=== PATIENT | male | born 1965 | race African-American/Black ===

== ENCOUNTER 2019-12-29 14:21 | Inpatient (IN) | payer OTHER ==
[2019-12-29] MEDS ORDERED: SODIUM CHLORIDE 0.9% 500 ML 500 ML IV STA (14:42)
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
[2019-12-29 15:14] LABS: ALT 29 U/L (4-49); AST 25 U/L (17-59); African American GFR (CKD) >90 (>60 ml/min/1.73 sqM); Alkaline Phosphatase 64 U/L (38-126); Anion Gap 9 mmol/L; Blood Urea Nitrogen 15 mg/dL (9-20); Calcium 9.2 mg/dL (8.4-10.2); Carbon Dioxide 22 mmol/L (22-30); Chloride 109 mmol/L (98-107); Glucose 108 mg/dL (74-99); Non-African American GFR(CKD) 86 (>60 ml/min/1.73 sqM); Potassium 4.4 mmol/L (3.5-5.1); Sodium 140 mmol/L (137-145); Total Protein 6.8 g/dL (6.3-8.2)
[2019-12-29 15:18] LABS: INR 0.9 (<1.2); Partial Thromboplastin Time 21.9 sec (22.0-30.0); Prothrombin Time 9.4 sec (9.0-12.0)
[2019-12-29 15:19] LABS: Basophils % (A) 1 %; Eosinophils # (A) 0.1 k/uL (0-0.7); Eosinophils % (A) 2 %; HCT 41.5 % (39.0-53.0); HGB 14.6 gm/dL (13.0-17.5); Lymphocytes # (A) 1.1 k/uL (1.0-4.8); Lymphocytes % (A) 19 %; MCH 31.6 pg (25.0-35.0); MCHC 35.2 g/dL (31.0-37.0); MCV 89.7 fL (80.0-100.0); Mean Platelet Volume 6.7; Monocytes # (A) 0.4 k/uL (0-1.0); Monocytes % (A) 7 %; Neutrophils # (A) 4.1 k/uL (1.3-7.7); Neutrophils % (A) 70 %; Platelet Count 420 k/uL (150-450); RBC 4.62 m/uL (4.30-5.90); RDW 12.5 % (11.5-15.5); WBC 5.9 k/uL (3.8-10.6)
--- NOTE | 2019-12-29 15:35 | CT ---
EXAMINATION TYPE: CT brain wo con DATE OF EXAM: 12/29/2019 COMPARISON: None HISTORY: Right sided numbness, started yesterday. CT DLP: 1098.4 mGycm Automated exposure control for dose reduction was used. Multiple axial sections were obtained of the brain without contrast. Ventricles have normal size. There is no mass effect nor midline shift. There is no sign of intracran ial hemorrhage. The calvarium is intact. There is right frontal scalp soft tissue swelling. IMPRESSION: Right frontal scalp soft tissue swelling. No acute intracranial abnormality. Mild cerebral atrophy.
--- NOTE | 2019-12-29 15:37 | XR ---
EXAMINATION TYPE: XR chest 2V DATE OF EXAM: 12/29/2019 COMPARISON: NONE HISTORY: Right sided numbness TECHNIQUE: FINDINGS: Heart and mediastinum appear normal. Lungs are clear of infiltrate. There are chest leads. Costophrenic angles are clear. Bony thorax appears intact. IMPRESSION: No active cardiopulmonary disease. Normal heart.
[2019-12-29] MEDS ORDERED: ASPIRIN 325 MG TAB PO STA (15:45)
[2019-12-29] MEDS ORDERED: SODIUM CHLORIDE 0.9% 1,000 ML IV SCH (16:00)
--- NOTE | 2019-12-29 17:44 | US ---
EXAMINATION TYPE: US carotid duplex BILAT DATE OF EXAM: 12/29/2019 COMPARISON: NONE CLINICAL HISTORY: Stenosis. Right side numbness. EXAM MEASUREMENTS: RIGHT: Peak Systolic Velocity (PSV) cm/sec ----- Right CCA: 84.2 ----- Right ICA: 88.6 ----- Right ECA: 72.6 ICA/CCA ratio: 1.1 RIGHT: End Diastole cm/sec ----- Right CCA: 23.1 ----- Right ICA: 14.4 ----- Right ECA: 10.0 LEFT: Peak Systolic Velocity (PSV) cm/sec ----- Left CCA: 65.3 ----- Left ICA: 68.2 ----- Left ECA: 69.6 ICA/CCA ratio: 1.0 LEFT: End Diastole cm/sec ----- Left CCA: 18.8 ----- Left ICA: 17.3 ----- Left ECA: 12.9 VERTEBRALS (direction of flow): Right Vertebral: Antegrade Left Vertebral: Antegrade Rhythm: Normal No significant stenosis seen IMPRESSION: There is antegrade flow in the vertebral arteries. The images and measurements suggest l ess than 25% stenosis in both internal carotid arteries. Criteria for Assigning % of Stenosis / Diameter reduction (Estimation based on the indirect measurements of the internal carotid artery velocities (ICA PSV). 1. Normal (no stenosis)=ICA PSV < 125 cm/s: ratio < 2.0: ICA EDV<40 cm/s. 2. Less than 50% stenosis=ICA PSV < 125 cm/s: ratio < 2.0: ICA EDV<40 cm/s. 3. 50 to 69% stenosis=ICA PSV of 125 to 230 cm/s: ration 2.0 ? 4.0: ICA EDV 40-100 cm/s. 4. Greater than 70% stenosis to near occlusion= ICA PSV > 230 cm/s: ratio > 4.0: ICA EDV > 100 cm/s. 5. Near occlusion= ICA PSV velocities may be low or undetectable: variable ratio and ICA EDV. 6. Total occlusion=unable to detect flow.
[2019-12-29] MEDS: ACETAMINOPHEN TAB 325 MG TAB PO PRN ×2 (17:52→22:28)
[2019-12-30 04:27] VITALS: RESP 18
[2019-12-30 07:30] LABS: Cholesterol 192 mg/dL (<200); HDL Cholesterol 46 mg/dL (40-60); LDL Cholesterol,Calculated 110 mg/dL (0-99); Triglycerides 178 mg/dL (<150)
[2019-12-30] MEDS ORDERED: ATORVASTATIN 40 MG TAB PO SCH (09:00)
--- NOTE | 2019-12-30 09:42 | ECHOF ---
Referral Reason:Thrombus MEASUREMENTS -------- HEIGHT: 182.9 cm WEIGHT: 86.2 kg BP: 122/70 RVIDd: 2.7 cm (< 3.3) IVSd: 1.0 cm (0.6 - 1.1) LVIDd: 4.6 cm (3.9 - 5.3) LVPWd: 0.9 cm (0.6 - 1.1) IVSs: 1.5 cm LVIDs: 3.0 cm LVPWs: 1.5 cm LA Diam: 2.7 cm (2.7 - 3.8) LAESV Index (A-L): 18.92 ml/m Ao Diam: 3.7 cm (2.0 - 3.7) AV Cusp: 2.2 cm (1.5 - 2.6) MV EXCURSION: 20.304 mm (> 18.000) MV EF SLOPE: 133 mm/s (70 - 150) EPSS: 0.9 cm MV E Donn: 0.72 m/s MV DecT: 216 ms MV A Donn: 0.34 m/s MV E/A Ratio: 2.12 RAP: 5.00 mmHg RVSP: 18.23 mmHg TAPSE: 21.76 mm FINDINGS -------- Sinus rhythm. This was a technically good study. The left ventricular size is normal. Left ventricular wall thickness is normal. Overall left vent ricular systolic function is normal with, an EF between 55 - 60 %. The right ventricle is normal in size. Normal LA size by volume 22+/-6 ml/m2. The right atrial size is normal. Interatrial and interventricular septum intact. The aortic valve is trileaflet, and appears structurally normal. No aortic stenosis or regurgitation. The mitral valve is normal. There is trace mitral regurgitation. Mild tricuspid regurgitation present. Right ventricular systolic pressure is normal at < 35 mmHg. There is no pulmonic regurgitation present. The aortic root size is normal. Normal inferior vena cava with normal inspiratory collapse consistent with estimated right atrial pre ssure of 5 mmHg. There is no pericardial effusion. CONCLUSIONS -------- 1. Left ventricular wall thickness is normal. 2. Overall left ventricular systolic function is normal with, an EF between 55 - 60 %. 3. Normal LA size by volume 22+/-6 ml/m2. 4. The aortic valve is trileaflet, and appears structurally normal. No aortic stenosis or regurgitati on. 5. There is trace mitral regurgitation. 6. Mild tricuspid regurgitation present. 7. Right ventricular systolic pressure is normal at < 35 mmHg. 8. Normal inferior vena cava with normal inspiratory collapse consistent with estimated right atrial pressure of 5 mmHg. 9. There is no pericardial effusion. [employer] MACHINE OPERATOR: Cici Riley RDCS
[2019-12-30] MEDS ORDERED: BENZOCAINE 20 % GEL 15 GM TUBE MM PRN (10:16)
[2019-12-30] MEDS ORDERED: ASPIRIN 325 MG TAB PO SCH (12:00)
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
--- NOTE | 2019-12-30 12:08 | P.DS ---
Providers Date of admission: 12/29/19 15:57 Attending physician: David Ricks Consults: 12/30/19 11:29 Consult Physician Routine Consulting Provider: Gema Albarado Consult Reason/Comments: Possible CVA Do you want consulting provider notified?: Yes Primary care physician: Bethanie Sage [facility] Course: Please refer to HPI for further details Patient Condition at Discharge: Stable Plan - Discharge Summary Discharge Rx Participant: Yes New Discharge Prescriptions: New Aspirin 81 mg PO DAILY #30 chewable Atorvastatin [Lipitor] 40 mg PO HS #30 tablet Discharge Medication List Aspirin 81 mg PO DAILY #30 chewable 12/30/19 [Rx] Atorvastatin [Lipitor] 40 mg PO HS #30 tablet 12/30/19 [Rx] Follow up Appointment(s)/Referral(s): Bethanie Sage MD [Primary Care Provider] - 3 Days Discharge Disposition: HOME SELF-CARE
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
[2019-12-30] MEDS ORDERED: LORazepam 2 MG/ML INJ IV STA (13:56)
[2019-12-30] MEDS ORDERED: LORazepam 1 MG TAB PO STA (13:57)
--- NOTE | 2019-12-30 15:36 | MR ---
EXAMINATION TYPE: MR brain wo con DATE OF EXAM: 12/30/2019 COMPARISON: CT 12/29/2019 HISTORY: 54 year-old male right sided numbness, possible CVA TECHNIQUE: Multiplanar, multisequence images of the brain and brainstem were acquired without IV con trast. Diffusion weighted imaging is performed. FINDINGS: No evidence for acute infarction, hemorrhage, mass, mass effect, midline shift, herniation, effacemen t of basal cisterns, or extra-axial fluid collection. Mild generalized cerebral and cerebellar volume loss. No hydrocephalus. Major intracranial flow voids are intact. 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 T2/FLAIR weighted sequences show moderate scattered bright white matter change in the subcortical, de ep, and periventricular regions of both cerebral hemispheres. Midline structures demonstrate normal morphology. The craniocervical junction is normal. Mild lobulated mucosal thickening floor of the right maxillary sinus and anterior left ethmoid air ce lls. Globes are intact. Some leftward nasal septal deviation. IMPRESSION: Mild generalized atrophy and moderate scattered burden of chronic small vessel ischemic disease. No a cute intracranial abnormality seen.
[2019-12-30 16:48] VITALS: BP 120/79; PULSE 78; TEMP 97.3
[2019-12-30 21:42] LABS: Hemoglobin A1C 4.7 % (4.0-6.0)
--- NOTE | 2019-12-31 12:36 | CDI ---
Documentation Clarification Form Date: 12/31/19 From: Mai Troy Phone: If you have a question about this query, please contact Carina Larios, Field Technical Specialist at [phone] between 8am and 5pm. Admit Date: 12/29/19 Discharge Date: 12/30/19 Patient Name: VLADISLAV ADEN Visit Number: [id number] ATTENTION: The Clinical Documentation Specialists (CDI) and [facility] Coding Staff appreciate your assistance in clarifying documentation. Please respond to the clarification below the line at the bottom and electronically sign. The CDI & [facility] Coding staff will review the response and follow-up if needed. Please note: Queries are made part of the Legal Health Record. If you have any questions, please contact the author of this message via ITS. Dear Dr. Mario Wells, Possible CVA is documented as a diagnosis in the H&P and possible acute ischemia stroke, probable left thalamic in neuro consult. 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 12/28 MRI: No acute intracranial abnormality. 12/29 MRA: No evidence for acute infarction, hemorrhage, mass, mass effect, midline shift, herniation, effacement of basal cisterns, or extra-axial fluid collection. Treatment: ASA In your professional opinion, please clarify the type of Stroke/CVA: TIA Ischemic (if know specify cause, specific vessel/location, and laterality): Hemorrhagic(if know specify specific location) Other (please specify): Unable to Determine Also, indicate any deficits related to the Stroke/CVA in your documentation (such as aphasia, ataxia, cognitive deficits, dysphagia, hemiplegiaetc.) Ruled out stroke MTDD
--- NOTE | 2020-01-03 09:43 | CDI ---
Documentation Clarification Form Date: 01/03/20 From: Mai Troy Phone: If you have a question about this query, please contact Carina Larios, Support Technician at [phone] between 8am and 5pm. Admit Date: 12/29/19 Discharge Date: 12/30/19 Patient Name: VLADISLAV ADEN Visit Number: [id number] The patients principal diagnosis has not been clearly identified and requires clarification. He presented with the following possible CVA. Per your query response the stroke was ruled out. 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 12/29 MRA: No evidence for acute infarction, hemorrhage, mass, mass effect, midline shift, herniation, effacement of basal cisterns, or extra-axial fluid collection. Treatment: ASA Consults: MRI of brain showed no acute ischemic stroke. Only small vessel disease. In your professional opinion, can you please clarify the diagnosis, after study, accounted for the patients presenting symptoms and was the reason chiefly responsible for the admission? No stroke etiology is not known for his left-sided tingling numbness MTDD
== END 2019-12-30 16:48 | disposition home or self-care (01) | DRG 92 ==
LOC: EC 14:21 → 3SCARD 15:57
PROVIDERS: ADMIT Internal Medicine; ATTEND Internal Medicine
DX: R20.0 Anesthesia of skin (principal); I67.89 Other cerebrovascular disease; E78.5 Hyperlipidemia, unspecified; I65.23 Occlusion and stenosis of bilateral carotid arteries; R40.2142 Coma scale, eyes open, spontaneous, at arrival to emergency department; R40.2362 Coma scale, best motor response, obeys commands, at arrival to emergency department; R40.2252 Coma scale, best verbal response, oriented, at arrival to emergency department; R29.701 NIHSS score 1; R47.1 Dysarthria and anarthria; R26.9 Unspecified abnormalities of gait and mobility; S06.9X0S Unspecified intracranial injury without loss of consciousness, sequela; F17.200 Nicotine dependence, unspecified, uncomplicated; V00-Y99 External causes of morbidity; W01.198A Fall on same level from slipping, tripping and stumbling with subsequent striking against other object, initial encounter; Y92.009 Unspecified place in unspecified non-institutional (private) residence as the place of occurrence of the external cause
CPT/HCPCS: 36415; 70450; 70551; 71046; 80053; 80061; 83036; 84484; 85025; 85610; 85730; 93005; 93306; 93880; 96360; 96361; 99285

== ENCOUNTER 2022-01-31 13:02 | Inpatient (IN) | payer MEDICAID, OTHER ==
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
[2022-01-31] MEDS ORDERED: ACETAMINOPHEN TAB 325 MG TAB PO PRN (18:10)
[2022-01-31] MEDS ORDERED: LORazepam 2 MG/ML INJ IM PRN ×2 (18:10)
[2022-01-31] MEDS ORDERED: MAG HYDROX/AL HYDROX/SIMETH 30 ML CUP PO PRN (18:10)
[2022-01-31] MEDS ORDERED: MAGNESIUM HYDROXIDE 2,400 MG/10 ML CUP PO PRN (18:10)
[2022-01-31] MEDS ORDERED: HALOPERIDOL LACTATE 5 MG/ML 1 ML VIAL IM PRN (18:10)
[2022-01-31] MEDS ORDERED: haloperidoL 5 MG TAB PO PRN (18:10)
[2022-01-31 18:41] LABS: Amphetamine Screen,Urine Not Detected (NotDetected); Barbiturate Screen,Urine Not Detected (NotDetected); Benzodiazepines Screen,Urine Not Detected (NotDetected); Cocaine Screen,Urine Detected (NotDetected); Methadone Screen, Urine Not Detected (NotDetected); Opiate Screen,Urine Not Detected (NotDetected); Oxycodone Screen, Urine Not Detected (NotDetected); Phencyclidine Screen,Urine Not Detected (NotDetected); Tricyclic Antidepressant,Urine Not Detected (NotDetected); Urn Cannabinoid Scrn Not Detected (NotDetected)
[2022-01-31] MEDS: NICOTINE 21MG/24HR PATCH TRANSDERM SCH (20:51)
[2022-02-01 06:49] VITALS: TEMP 98.1
[2022-02-01 07:19] LABS: ALT 20 U/L (4-49); AST 21 U/L (17-59); African American GFR (CKD) >90 (>60 ml/min/1.73 sqM); Albumin 3.7 g/dL (3.5-5.0); Alkaline Phosphatase 56 U/L (38-126); Anion Gap 7 mmol/L; Calcium 9.4 mg/dL (8.4-10.2); Carbon Dioxide 24 mmol/L (22-30); Chloride 107 mmol/L (98-107); Glucose 104 mg/dL (74-99); Non-African American GFR(CKD) 84 (>60 ml/min/1.73 sqM); Potassium 4.6 mmol/L (3.5-5.1); Sodium 138 mmol/L (137-145)
[2022-02-01 07:21] LABS: Bilirubin, Delta 0.1 mg/dL (0.0-0.2); Bilirubin,Unconjugated 1.2 mg/dL (0.0-1.1); Blood Urea Nitrogen 10 mg/dL (9-20); Total Bilirubin 1.3 mg/dL (0.2-1.3); Total Protein 6.5 g/dL (6.3-8.2)
[2022-02-01 07:41] LABS: Basophils % (A) 1 %; Eosinophils # (A) 0.1 k/uL (0-0.7); Eosinophils % (A) 3 %; HCT 48.8 % (39.0-53.0); HGB 16.5 gm/dL (13.0-17.5); Lymphocytes # (A) 1.6 k/uL (1.0-4.8); Lymphocytes % (A) 29 %; MCH 32.1 pg (25.0-35.0); MCHC 33.9 g/dL (31.0-37.0); MCV 94.9 fL (80.0-100.0); Mean Platelet Volume 6.7; Monocytes # (A) 0.5 k/uL (0-1.0); Monocytes % (A) 8 %; Neutrophils # (A) 3.3 k/uL (1.3-7.7); Neutrophils % (A) 58 %; Platelet Count 475 k/uL (150-450); RBC 5.14 m/uL (4.30-5.90); RDW 13.2 % (11.5-15.5); WBC 5.7 k/uL (3.8-10.6)
[2022-02-01] MEDS: NICOTINE 21MG/24HR PATCH TRANSDERM SCH (08:25)
--- NOTE | 2022-02-01 11:53 | P.HP ---
Psychiatric H&P - . H&P Date: 02/01/22 History & Physical: Allergies Allergy/AdvReac Type Severity Reaction Status Date / Time No Known Allergies Allergy Verified 01/31/22 18:17 Vital Signs Temp 98.1 F 02/01/22 06:48 Pulse 97 02/01/22 06:48 Resp 16 01/31/22 18:57 BP 106/73 02/01/22 06:48 Pulse Ox 95 02/01/22 06:48 Intake & Output 01/31/22 02/01/22 02/01/22 18:59 06:59 18:59 Weight 82.1 kg Laboratory Last Values WBC 5.7 k/uL (3.8-10.6) 02/01/22 06:26 RBC 5.14 m/uL (4.30-5.90) 02/01/22 06:26 Hgb 16.5 gm/dL (13.0-17.5) 02/01/22 06:26 Hct 48.8 % (39.0-53.0) 02/01/22 06:26 MCV 94.9 fL (80.0-100.0) 02/01/22 06:26 MCH 32.1 pg (25.0-35.0) 02/01/22 06:26 MCHC 33.9 g/dL (31.0-37.0) 02/01/22 06:26 RDW 13.2 % (11.5-15.5) 02/01/22 06:26 Plt Count 475 k/uL (150-450) H 02/01/22 06:26 MPV 6.7 02/01/22 06:26 Neutrophils % 58 % 02/01/22 06:26 Lymphocytes % 29 % 02/01/22 06:26 Monocytes % 8 % 02/01/22 06:26 Eosinophils % 3 % 02/01/22 06:26 Basophils % 1 % 02/01/22 06:26 Neutrophils # 3.3 k/uL (1.3-7.7) 02/01/22 06:26 Lymphocytes # 1.6 k/uL (1.0-4.8) 02/01/22 06:26 Monocytes # 0.5 k/uL (0-1.0) 02/01/22 06:26 Eosinophils # 0.1 k/uL (0-0.7) 02/01/22 06:26 Basophils # 0.0 k/uL (0-0.2) 02/01/22 06:26 Sodium 138 mmol/L (137-145) 02/01/22 06:26 Potassium 4.6 mmol/L (3.5-5.1) 02/01/22 06:26 Chloride 107 mmol/L (98-107) 02/01/22 06:26 Carbon Dioxide 24 mmol/L (22-30) 02/01/22 06:26 Anion Gap 7 mmol/L 02/01/22 06:26 BUN 10 mg/dL (9-20) 02/01/22 06:26 Creatinine 1.01 mg/dL (0.66-1.25) 02/01/22 06:26 Est GFR (CKD-EPI)AfAm >90 (>60 ml/min/1.73 sqM) 02/01/22 06:26 Est GFR (CKD-EPI)NonAf 84 (>60 ml/min/1.73 sqM) 02/01/22 06:26 Glucose 104 mg/dL (74-99) H 02/01/22 06:[address] Glu mg/dL 97 02/01/22 06:26 Hemoglobin A1c 5.0 % (0.0-6.0) 02/01/22 06:26 Calcium 9.4 mg/dL (8.4-10.2) 02/01/22 06:26 Total Bilirubin 1.3 mg/dL (0.2-1.3) 02/01/22 06:26 Conjugated Bilirubin 0.0 mg/dL (0.0-0.3) 02/01/22 06:26 Unconjugated Bilirubin 1.2 mg/dL (0.0-1.1) H 02/01/22 06:26 Delta Bilirubin 0.1 mg/dL (0.0-0.2) 02/01/22 06:26 AST 21 U/L (17-59) 02/01/22 06:26 ALT 20 U/L (4-49) 02/01/22 06:26 Alkaline Phosphatase 56 U/L (38-126) 02/01/22 06:26 Total Protein 6.5 g/dL (6.3-8.2) 02/01/22 06:26 Albumin 3.7 g/dL (3.5-5.0) 02/01/22 06: TSH 1.390 mIU/L (0.465-4.680) 02/01/22 06:26 Urine Opiates Screen Not Detected (NotDetected) 01/31/22 17:22 Ur Oxycodone Screen Not Detected (NotDetected) 01/31/22 17:22 Urine Methadone Screen Not Detected (NotDetected) 01/31/22 17:22 Ur Propoxyphene Screen Not Detected (NotDetected) 01/31/22 17:22 Ur Barbiturates Screen Not Detected (NotDetected) 01/31/22 17:22 U Tricyclic Antidepress Not Detected (NotDetected) 01/31/22 17: Ur Phencyclidine Scrn Not Detected (NotDetected) 01/31/22 17:22 Ur Amphetamines Screen Not Detected (NotDetected) 01/31/22 17:22 U Methamphetamines Scrn Not Detected (NotDetected) 01/31/22 17:22 U Benzodiazepines Scrn Not Detected (NotDetected) 01/31/22 17:22 Urine Cocaine Screen Detected (NotDetected) H 01/31/22 17:22 U Marijuana (THC) Screen Not Detected (NotDetected) 01/31/22 17:22 Coronavirus (PCR) Not Detected (Not Detectd) 01/31/22 17:22 02/01/22 11:45 IDENTIFYING DATA: Patient is a 56-year-old -[place] male who currently lives in an apartment alone, single has no kids, collects SSI. HPI: Patient presented to the hospital yesterday complaining of suicidal or homicidal ideations. She apparently made a plan to overdose on pills. 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 Patient was admitted voluntarily to the mental health unit. He was seen things that today and agreeable to speak to fha underwriter. He walked with a walker and was mumbling with his speech. He was fairly directable during conversation however had a constricted affect. He did have some irritability with his tone of voice. He claims that he can't "keep going through this" referring to his drinking and also with his mood. He states that he was drinking approximately 2 pints of liquor +6 beers a day for several months now. He states that his last drink was 1 week ago and went through minor withdrawals including tremors however denied any seizures. He states that he is not having any withdrawal symptoms now. He claims that he is trying to get into [place] however he states that he was upset when they told him that they would not be able to provide him transportation back to his house. He states that "my mind just snapped" and that's when he became more depressed and suicidal. He states that also he's been having financial issues and claims that he recently lost his rent money and does not know how he is getting a pay his rent. He claims that he went to [facility] to speak with a counselor however they referred him to the hospital. He claims that he is mainly noncompliant with his medications however has not taking psychiatric medications in the past. He states he sleeps approximately 7-8 hours however appears to have a delay in his sleep-wake cycle. He claims that his appetite is fair. Patient denies any current suicidal or homicidal ideations intent or plan. At this time patient denies any auditory or visual hallucinations. Patient denies any flight of ideas racing thoughts and increased in goal directed behavior. Patient admits to using crack cocaine approximately $30-$40 a week. He claims that he drinks alcohol as noted above. He states that he has been to [place] several times in the past. He also states that he smokes cigarettes. Denies any other recreational drug use. PAST PSYCHIATRIC HISTORY: Patient states that he has no previous psychiatric history however does have a history of TBI back in the early .. Patient denies being on any psychiatric medications. Patient denies any previous psychiatric hospitalizations. Patient denies any psychiatric outpatient follow- up. Patient denies any history of suicide attempts in the past. PMH: TBI in the early . ALLERGIES: as per EMR CHEMICAL DEPENDENCY HISTORY: as per HPI FAMILY PSYCHIATRIC/SUBSTANCE USE HISTORY: denies SOCIAL HISTORY: Patient was born and raised in [facility]. He states that he completed up to the 10th grade in school. He claims that he never worked and "hustled in the streets". He states that he currently collects SSI. He states that he has been to [facility] in the past for charges of stealing. He currently lives alone in an apartment. He single has no kids. MENTAL STATUS EXAM: General Appearance: Patient appears to be a tall, walking with a walker, stated age is alert, directable, and attempts to cooperate. Somewhat irritable. Patient appears to have poor hygiene and grooming. Behavior: Patient is seated without any agitated behavior. Mood irritable. Attempts to cooperate. Speech: Patient's speech is difficult to comprehend at times, mumbling. Mood/Affect: Patient reports their mood is depressed, affect is congruent and constricted. Suicidality/Homicidality: Patient denies having any homicidal ideation intent or plan. Denies any suicidal ideations intent or plan Perceptions: Patient denies any visual hallucinations and denies any auditory hallucinations Though content/process: There is no evidence of any delusional thought content and thought process is linear and goal-directed. Tangential, rambles. Memory and concentration: AOX3, grossly intact for the purposes of this session. Can spell "WORLD" backwards Judgment and insight: poor STRENGTHS/WEAKNESSES: strength is that patient is resilient. Weakness is that patient has poor judgment and is impulsive INTELLECT: average IMPRESSIONS: Major depressive disorder, without psychotic features Financial difficulties Cocaine abuse Alcohol use disorder Nicotine dependence PLAN: -Patient is admitted under voluntary status to MHU for stabilization of psychiatric symptoms and safety. Patient has not signed medication consent and is placed in patient's chart. -Medications : Will start patient on Cymbalta 30 mg daily for mood/anxiety/pain, melatonin daily at bedtime for sleep. -Ativan and Haldol PRN for agitation/aggression -Patient's last alcohol drink was over a week ago and is not currently having any withdrawal symptoms. We'll continue to monitor and check vital signs. -Patient was counselled on substance abuse and desired to cut back on use -Patient was informed of the risks, benefits and side effects of the medication and patient verbally consented to taking the medications however patient did not want to sign med consent form. -Internal Medicine consult to perform medical evaluation and physical. -NRT - nicotine patch -SW on board for discharge planning. Encourage patient to participate in groups to work on coping skills. Patient continues to want to go to [place] however will speak with social work assistant about transportation issues.
[2022-02-01] MEDS: DULoxetine HCL 30 MG CAPSULE.DR PO SCH (13:27)
[2022-02-01 16:35] LABS: Chol/HDL Ratio 6.65 Ratio; LDL Cholesterol,Calculated 188.1 mg/dL (0.0-131.0)
[2022-02-01] MEDS ORDERED: MELATONIN 3 MG TABLET PO SCH (21:00)
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
[2022-02-01] MEDS: ATORVASTATIN 40 MG TAB PO SCH (21:41)
[2022-02-01] MEDS: THIAMINE 100 MG TAB PO SCH (21:41)
[2022-02-02] MEDS: NICOTINE 21MG/24HR PATCH TRANSDERM SCH (09:38)
[2022-02-02] MEDS: DULoxetine HCL 30 MG CAPSULE.DR PO SCH (09:38)
[2022-02-02] MEDS: THIAMINE 100 MG TAB PO SCH (09:38)
--- NOTE | 2022-02-02 10:10 | P.PN ---
Progress Note - Text Progress Note Date: 02/02/22 Interval History: Patient was seen wandering the hallways and was directable and agreeable to ben castaneda with race and sports book writer in the office. Patient had just taken his medications this morning. He appeared to be more directable and less irritable during conversation. He states that he feels "about the same" and continues to state that he does feel depressed and also states that he still feels that he may want to hurt somebody. When asked who, he states that "anybody that messes with me". He is denying any suicidal thoughts today. He claims that he feels mainly tired during the day after he takes the Cymbalta and was agreeable to have it switched to nighttime dosing. He states that he did not sleep well last night and states that he did get a new roommate who may have been disruptive. He claims that he is eating fairly now and his appetite has been improving. He does claim that he goes to the groups later on in the day as he is feeling tired during the day. We continue to speak about his financial situation and help with paying the rent on time. He states that he does have a payee however he was still able to somehow withdrawal $400 from the bank. At this time patient denies any suicidal, intent or plan. Patient denies any auditory, visual hallucinations and denies any paranoia or delusions. Patient denies any side effects from the medications and has been compliant with meds. Mental Status Exam: General Appearance: Patient appears to be a tall, walking with a walker, stated age is alert, directable, and attempts to cooperate. Somewhat irritable. Patient appears to have improving hygiene and grooming. Behavior: Patient is seated without any agitated behavior. Mood irritable. Attempts to cooperate. Speech: Patient's speech is difficult to comprehend at times, mumbling. Mood/Affect: Patient reports their mood is depressed, improving mildly, affect is congruent and constricted. Suicidality/Homicidality: Patient denies having any homicidal ideation intent or plan. Denies any suicidal ideations intent or plan Perceptions: Patient denies any visual hallucinations and denies any auditory hallucinations Though content/process: There is no evidence of any delusional thought content and thought process is linear and goal-directed. Tangential, rambles at times. Memory and concentration: AOX3, grossly intact for the purposes of this session. Judgment and insight: poor, improving mildly Assessment Major depressive disorder, without psychotic features Financial difficulties Cocaine abuse Alcohol use disorder Nicotine dependence Plan: -Patient continues to meet criteria for inpatient psychiatric admission for symptom stabilization and safety. Patient has not signed medication consent and was placed in patient's chart. -Medications: increase Cymbalta 60 mg daily at bedtime for mood/anxiety/pain, increase melatonin 5 mg daily at bedtime for sleep -When necessary Ativan and Haldol for agitation/aggression. -NRT - nicotine patch -SW on board for discharge planning. Encouraged the patient to participate in milieu. likely discharge in 1-2 days.
[2022-02-02] MEDS ORDERED: MELATONIN 5 MG TABLET PO SCH (21:00)
[2022-02-02] MEDS: ATORVASTATIN 40 MG TAB PO SCH (21:23)
[2022-02-02] MEDS: DULoxetine HCL 60 MG CAPSULE.DR PO SCH (21:23)
[2022-02-03] MEDS ORDERED: LORazepam 1 MG TAB PO PRN (01:55)
[2022-02-03] MEDS ORDERED: traZODone HCL 50 MG TAB PO STA (01:57)
[2022-02-03] MEDS: NICOTINE 21MG/24HR PATCH TRANSDERM SCH (08:19)
[2022-02-03] MEDS: THIAMINE 100 MG TAB PO SCH (08:19)
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
[2022-02-03] MEDS: ATORVASTATIN 40 MG TAB PO SCH (19:55)
[2022-02-03] MEDS: DULoxetine HCL 60 MG CAPSULE.DR PO SCH (19:56)
[2022-02-03] MEDS ORDERED: MIRTAZAPINE 15 MG TAB PO SCH (21:00)
[2022-02-03] MEDS ORDERED: MELATONIN 5 MG TABLET PO SCH (21:00)
[2022-02-03] MEDS ORDERED: traZODone HCL 100 MG TAB PO SCH (21:00)
[2022-02-04 06:52] VITALS: BP 96/62; PULSE 72; RESP 16
[2022-02-04] MEDS: NICOTINE 21MG/24HR PATCH TRANSDERM SCH (08:47)
[2022-02-04] MEDS: THIAMINE 100 MG TAB PO SCH (08:47)
--- NOTE | 2022-02-04 09:59 | P.DS ---
Providers Date of admission: 01/31/22 18:05 Expected date of discharge: 02/04/22 Attending physician: Myron Hewitt MD Consults: 01/31/22 18:10 Consult Physician Routine Consulting Provider: [facility] Consult Reason/Comments: H & P W/MEDICAL MANAGEMENT Do you want consulting provider notified?: Yes Primary care physician: Bethanie Sage - Discharge Diagnosis(es) (1) Major depressive disorder without psychotic features Current Visit: Yes Status: Acute Priority: High (2) Financial difficulties Current Visit: Yes Status: Acute Priority: Medium (3) Cocaine abuse Current Visit: Yes Status: Acute Priority: High (4) Alcohol use disorder Current Visit: Yes Status: Acute Priority: Medium (5) Nicotine dependence Current Visit: Yes Status: Acute Priority: Low Hospital Course: Admission HPI: Admission note was completed by scenario writer "Patient is a 56-year-old -Am er[place] male who currently lives in an apartment alone, single has no kids, collects SSI. Patient presented to the hospital yesterday complaining of suicidal or homicidal ideations. She apparently made a plan to overdose on pills. 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 Patient was admitted voluntarily to the mental health unit. He was seen things that today and agreeable to speak to scenario writer. He walked with a walker and was mumbling with his speech. He was fairly directable during conversation however had a constricted affect. He did have some irritability with his tone of voice. He claims that he can't "keep going through this" referring to his drinking and also with his mood. He states that he was drinking approximately 2 pints of liquor +6 beers a day for several months now. He states that his last drink was 1 week ago and went through minor withdrawals including tremors however denied any seizures. He states that he is not having any withdrawal symptoms now. He claims that he is trying to get into [place] however he states that he was upset when they told him that they would not be able to provide him transportation back to his house. He states that "my mind just snapped" and that's when he became more depressed and suicidal. He states that also he's been having financial issues and claims that he recently lost his rent money and does not know how he is getting a pay his rent. He claims that he went to [facility] to speak with a counselor however they referred him to the hospital. He claims that he is mainly noncompliant with his medications however has not taking psychiatric medications in the past. He states he sleeps approximately 7-8 hours however appears to have a delay in his sleep-wake cycle. He claims that his appetite is fair. Patient denies any current suicidal or homicidal ideations intent or plan. At this time patient denies any auditory or visual hallucinations. Patient denies any flight of ideas racing thoughts and increased in goal directed behavior. Patient admits to using crack cocaine approximately $30-$40 a week. He claims that he drinks alcohol as noted above. He states that he has been to [facility] several times in the past. He also states that he smokes cigarettes. Denies any other recreational drug use." Hospital course: Upon admission to the unit patient was directable and agreeable to commence treatment and signed adult voluntary form. Patient got along well with other patients on the unit and followed unit protocol. Patient was compliant with the medications and denied any side effects throughout hospital course. Patient was started on Cymbalta and increased her dose of 60 mg daily at bedtime for mood/anxiety/pain, melatonin 10 mg daily at bedtime for sleep. Patient was tried on Remeron however did not tolerate it well and was switched back on to trazodone 100 mg daily at bedtime when necessary for sleep. Patient spoke of his stressors and engaged in therapy both group and individual. Patient was also seen by medical team for history and physical exam. Throughout the course of the hospitalization patient gradually improved with regards to mood, anxiety, irritability, sleep and returned back to their baseline level of functioning. On the day of discharge patient denied any suicidal or homicidal ideations intent or plan denied any auditory or visual hallucinations. Patient endorsed wanting to live for his family and his future. The patient denied any access to guns or weapons. Patient denied any paranoia and did not endorse any delusions. Patient does have a significant history of substance abuse and was counseled on abstaining from all substances including alcohol and marijuana. Patient was offered however declined inpatient substance-abuse rehab. Patient elected to do outpatient substance use treatment program through [facility] and claims that he will consider inpatient rehab in the future however at this time is declining it. Patient was also counseled on the medications and need for regular compliance and was encouraged to follow-up with their outpatient appointment for mental health and also for primary care. Mental status exam: General Appearance: Patient appears to be thin, using a walker, stated age is alert, directable, and cooperative. Patient is in no acute distress and has improved hygiene and grooming Behavior: Patient is calmly seated without any agitated behavior. More cooperative today. Speech: Patient's speech is fluent and nonpressured. Mood/Affect: Patient reports their mood is "better", affect is congruent and constricted Suicidality/Homicidality: Patient denies having any suicidal or homicidal ideation intent or plan. Perceptions: Patient denies any auditory or visual hallucinations. Though content/process: There is no evidence of any delusional thought content and thought process is linear and goal-directed. [place]. Memory and concentration: AOX3, grossly intact for the purposes of this session. Can spell "WORLD" backwards correctly. Judgment and insight: chronically poor, however has improved with guarded prognosis Impression: Major depressive disorder, without psychotic features Financial difficulties Cocaine abuse Alcohol use disorder Nicotine dependence Plan: -Continue with discharge today as patient has improved and stabilized psychiatrically and is not currently an imminent threat to himself and/or others. Patient will remain at chronically elevated risk for harm to self and/or others due to his polysubstance abuse. -Continue medications: Cymbalta 60 mg daily at bedtime for mood/anxiety/pain, melatonin 10 mg daily at bedtime for sleep, trazodone 100 mg daily at bedtime when necessary for sleep. -Patient was counseled on the need for medication compliance and appropriate follow-up at mental health and also primary care for medical issues. Patient verbalized understanding and agreed. -Social work to help arrange patient's discharged today back home. Patient is refusing rehab. Social work also to arrange for patients follow up appointments with [facility] for psychiatric care along with follow up with primary care provider. -Patient counseled on abstaining from recreational drugs and marijuana and alcohol. Was informed/educated on the adverse effects on their physical and mental health. Patient verbally agreed and understood. Patient was offered substance abuse treatment however declined at this time. -Patient was instructed to return to the hospital or seek immediate medical care if their psychiatric or medical symptoms do worsen or reoccur. Allergies Allergy/AdvReac Type Severity Reaction Status Date / Time No Known Allergies Allergy Verified 01/31/22 18:17 Laboratory Results WBC 5.7 k/uL (3.8-10.6) 02/01/22 06:26 RBC 5.14 m/uL (4.30-5.90) 02/01/22 06:26 Hgb 16.5 gm/dL (13.0-17.5) 02/01/22 06:26 Hct 48.8 % (39.0-53.0) 02/01/22 06:26 MCV 94.9 fL (80.0-100.0) 02/01/22 06:26 MCH 32.1 pg (25.0-35.0) 02/01/22 06:26 MCHC 33.9 g/dL (31.0-37.0) 02/01/22 06:26 RDW 13.2 % (11.5-15.5) 02/01/22 06:26 Plt Count 475 k/uL (150-450) H 02/01/22 06:26 MPV 6.7 02/01/22 06:26 Neutrophils % 58 % 02/01/22 06:26 Lymphocytes % 29 % 02/01/22 06:26 Monocytes % 8 % 02/01/22 06:26 Eosinophils % 3 % 02/01/22 06:26 Basophils % 1 % 02/01/22 06:26 Neutrophils # 3.3 k/uL (1.3-7.7) 02/01/22 06:26 Lymphocytes # 1.6 k/uL (1.0-4.8) 02/01/22 06:26 Monocytes # 0.5 k/uL (0-1.0) 02/01/22 06:26 Eosinophils # 0.1 k/uL (0-0.7) 02/01/22 06:26 Basophils # 0.0 k/uL (0-0.2) 02/01/22 06:26 Sodium 138 mmol/L (137-145) 02/01/22 06:26 Potassium 4.6 mmol/L (3.5-5.1) 02/01/22 06:26 Chloride 107 mmol/L (98-107) 02/01/22 06:26 Carbon Dioxide 24 mmol/L (22-30) 02/01/22 06:26 Anion Gap 7 mmol/L 02/01/22 06:26 BUN 10 mg/dL (9-20) 02/01/22 06:26 Creatinine 1.01 mg/dL (0.66-1.25) 02/01/22 06:26 Est GFR (CKD-EPI)AfAm >90 (>60 ml/min/1.73 sqM) 02/01/22 06:26 Est GFR (CKD-EPI)NonAf 84 (>60 ml/min/1.73 sqM) 02/01/22 06:26 Glucose 104 mg/dL (74-99) H 02/01/22 06:[address] Glu mg/dL 97 02/01/22 06:26 Hemoglobin A1c 5.0 % (0.0-6.0) 02/01/22 06:26 Calcium 9.4 mg/dL (8.4-10.2) 02/01/22 06:26 Total Bilirubin 1.3 mg/dL (0.2-1.3) 02/01/22 06:26 Conjugated Bilirubin 0.0 mg/dL (0.0-0.3) 02/01/22 06:26 Unconjugated Bilirubin 1.2 mg/dL (0.0-1.1) H 02/01/22 06:26 Delta Bilirubin 0.1 mg/dL (0.0-0.2) 02/01/22 06:26 AST 21 U/L (17-59) 02/01/22 06:26 ALT 20 U/L (4-49) 02/01/22 06:26 Alkaline Phosphatase 56 U/L (38-126) 02/01/22 06:26 Total Protein 6.5 g/dL (6.3-8.2) 02/01/22 06:26 Albumin 3.7 g/dL (3.5-5.0) 02/01/22 06:26 Triglycerides 181.00 mg/dL (0.00-149.00) H 02/01/22 06:26 Cholesterol 264.00 mg/dL (0.00-200.00) H 02/01/22 06:26 LDL Cholesterol, Calc 188.1 mg/dL (0.0-131.0) H 02/01/22 06:26 VLDL Cholesterol, Calc 36.20 mg/dL (5.00-40.00) 02/01/22 06: HDL Cholesterol 39.70 mg/dL (40.00-60.00) L 02/01/22 06:26 Cholesterol/HDL Ratio 6.65 Ratio 02/01/22 06:26 TSH 1.390 mIU/L (0.465-4.680) 02/01/22 06:26 Urine Opiates Screen Not Detected (NotDetected) 01/31/22 17:22 Ur Oxycodone Screen Not Detected (NotDetected) 01/31/22 17:22 Urine Methadone Screen Not Detected (NotDetected) 01/31/22 17:22 Ur Propoxyphene Screen Not Detected (NotDetected) 01/31/22 17:22 Ur Barbiturates Screen Not Detected (NotDetected) 01/31/22 17:22 U Tricyclic Antidepress Not Detected (NotDetected) 01/31/22 17:22 Ur Phencyclidine Scrn Not Detected (NotDetected) 01/31/22 17:22 Ur Amphetamines Screen Not Detected (NotDetected) 01/31/22 17:22 U Methamphetamines Scrn Not Detected (NotDetected) 01/31/22 17:22 U Benzodiazepines Scrn Not Detected (NotDetected) 01/31/22 17:22 Urine Cocaine Screen Detected (NotDetected) H 01/31/22 17:22 U Marijuana (THC) Screen Not Detected (NotDetected) 01/31/22 17:22 Coronavirus (PCR) Not Detected (Not Detectd) 01/31/22 17:22 Vital Signs Temp 98.1 F 02/04/22 06:51 Pulse 72 02/04/22 06:51 Resp 16 02/04/22 06:51 BP 96/62 02/04/22 06:51 Pulse Ox 98 02/04/22 06:51 Patient Condition at Discharge: Stable Plan - Discharge Summary New Discharge Prescriptions: New Atorvastatin [Lipitor] 40 mg PO HS 30 Days tab Melatonin 10 mg PO HS 30 Days tablet DULoxetine HCL [Cymbalta] 60 mg PO HS 30 Days Nicotine 21Mg/24Hr Patch [Habitrol] 1 patch TRANSDERM DAILY 14 Days patch traZODone HCL 100 mg PO HS PRN 30 Days tablet PRN Reason: Insomnia Thiamine [Vitamin B-1] 100 mg PO DAILY 30 Days tab Discontinued Promethazine 6.25MG/5Ml [Phenergan Syrup] 6.25 mg PO HS Discharge Medication List Atorvastatin [Lipitor] 40 mg PO HS 30 Days tab 02/04/22 [Rx] DULoxetine HCL [Cymbalta] 60 mg PO HS 30 Days 02/04/22 [Rx] Melatonin 10 mg PO HS 30 Days tablet 02/04/22 [Rx] Nicotine 21Mg/24Hr Patch [Habitrol] 1 patch TRANSDERM DAILY 14 Days patch 02/04/22 [Rx] Thiamine [Vitamin B-1] 100 mg PO DAILY 30 Days tab 02/04/22 [Rx] traZODone HCL 100 mg PO HS PRN 30 Days tablet 02/04/22 [Rx] Follow up Appointment(s)/Referral(s): [facility] [Outside] - 02/10/22 11:30 am (02/10 @ 11:30am- [facility] intake at [facility]) Bethanie Sage MD [Primary Care Provider] - 1-2 days Activity/Diet/Wound Care/Special Instructions: Activity and diet as tolerated. Avoid the use of street drugs and alcohol. Take all medications as prescribed. When you are in need of refills on your medications please contact your medical provider and/or outpatient psychiatrist to have this done. Please go to scheduled outpatient appointment for aftercare treatment. If symptoms return or become worse, call the crisis line at and/or go to the nearest emergency room for evaluation Discharge Disposition: HOME SELF-CARE
== END 2022-02-04 13:31 | disposition home or self-care (01) | DRG 881 ==
LOC: EC 13:02 → 3MHU 18:05
PROVIDERS: ADMIT Psychiatry & Neurology Psychiatry; ATTEND Psychiatry & Neurology Psychiatry
DX: F32.9 Major depressive disorder, single episode, unspecified (principal); R45.851 Suicidal ideations; E78.1 Pure hyperglyceridemia; T43.96XA Underdosing of unspecified psychotropic drug, initial encounter; E78.5 Hyperlipidemia, unspecified; F10.10 Alcohol abuse, uncomplicated; F14.10 Cocaine abuse, uncomplicated; F17.210 Nicotine dependence, cigarettes, uncomplicated; Z71.41 Alcohol abuse counseling and surveillance of alcoholic; Z71.51 Drug abuse counseling and surveillance of drug abuser; Z71.6 Tobacco abuse counseling; F41.9 Anxiety disorder, unspecified; R45.850 Homicidal ideations; Z79.82 Long term (current) use of aspirin; Z28.310 Unvaccinated for COVID-19; Z20.822 Contact with and (suspected) exposure to COVID-19; Z79.899 Other long term (current) drug therapy; Z87.820 Personal history of traumatic brain injury; Z91.128 Patient's intentional underdosing of medication regimen for other reason; Z60.2 Problems related to living alone
CPT/HCPCS: 80053; 80061; 80306; 82075; 82248; 83036; 84443; 85025; 87635; 99285

== ENCOUNTER 2022-05-20 23:47 | Inpatient (IN) | payer MEDICAID, OTHER ==
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
[2022-05-21] MEDS ORDERED: THIAMINE 100 MG TAB PO STA (01:09)
[2022-05-21 01:48] LABS: Basophils # (A) 0.1 k/uL (0-0.2); Basophils % (A) 1 %; Eosinophils # (A) 0.1 k/uL (0-0.7); Eosinophils % (A) 2 %; HCT 41.7 % (39.0-53.0); HGB 13.8 gm/dL (13.0-17.5); Lymphocytes # (A) 1.8 k/uL (1.0-4.8); Lymphocytes % (A) 27 %; MCH 30.6 pg (25.0-35.0); MCHC 33.2 g/dL (31.0-37.0); MCV 92.2 fL (80.0-100.0); Mean Platelet Volume 6.8; Monocytes # (A) 0.4 k/uL (0-1.0); Monocytes % (A) 7 %; Neutrophils # (A) 4.3 k/uL (1.3-7.7); Neutrophils % (A) 63 %; Platelet Count 339 k/uL (150-450); RBC 4.52 m/uL (4.30-5.90); RDW 13.3 % (11.5-15.5); WBC 6.8 k/uL (3.8-10.6)
[2022-05-21 01:49] LABS: ALT 19 U/L (4-49); AST 22 U/L (17-59); Acetaminophen <10.0 ug/mL; African American GFR (CKD) >90 (>60 ml/min/1.73 sqM); Albumin 3.7 g/dL (3.5-5.0); Alcohol 26 mg/dL; Alkaline Phosphatase 59 U/L (38-126); Anion Gap 15 mmol/L; Blood Urea Nitrogen 5 mg/dL (9-20); Calcium 9.1 mg/dL (8.4-10.2); Carbon Dioxide 18 mmol/L (22-30); Chloride 106 mmol/L (98-107); Glucose 120 mg/dL (74-99); Lipase 97 U/L (23-300); Non-African American GFR(CKD) 88 (>60 ml/min/1.73 sqM); Potassium 3.6 mmol/L (3.5-5.1); Salicylate <1.0 mg/dL; Sodium 139 mmol/L (137-145); Total Bilirubin 0.7 mg/dL (0.2-1.3); Total Protein 5.9 g/dL (6.3-8.2)
[2022-05-21 01:58] LABS: Amphetamine Screen,Urine Not Detected (NotDetected); Barbiturate Screen,Urine Not Detected (NotDetected); Benzodiazepines Screen,Urine Not Detected (NotDetected); Cocaine Screen,Urine Detected (NotDetected); Methadone Screen, Urine Not Detected (NotDetected); Opiate Screen,Urine Not Detected (NotDetected); Oxycodone Screen, Urine Not Detected (NotDetected); Phencyclidine Screen,Urine Not Detected (NotDetected); Tricyclic Antidepressant,Urine Not Detected (NotDetected); Urn Cannabinoid Scrn Not Detected (NotDetected)
--- NOTE | 2022-05-21 02:38 | XR ---
EXAMINATION TYPE: XR chest 1V DATE OF EXAM: 05/21/2022 COMPARISON: 12/29/2019 HISTORY: Chest pain TECHNIQUE: FINDINGS: Heart is normal. Lungs are clear of infiltrate. No heart failure. There are no hilar masses . Costophrenic angles are clear. IMPRESSION: Normal chest. No change.
[2022-05-21] MEDS ORDERED: MAGNESIUM HYDROXIDE 2,400 MG/10 ML CUP PO PRN (04:08)
[2022-05-21] MEDS ORDERED: HALOPERIDOL LACTATE 5 MG/ML 1 ML VIAL IM PRN (04:08)
[2022-05-21] MEDS ORDERED: MAG HYDROX/AL HYDROX/SIMETH 30 ML CUP PO PRN (04:08)
[2022-05-21] MEDS ORDERED: LORazepam 1 MG TAB PO PRN (04:08)
[2022-05-21] MEDS ORDERED: LORazepam 2 MG/ML INJ IM PRN (04:11)
[2022-05-21] MEDS ORDERED: haloperidoL 5 MG TAB PO PRN (04:12)
[2022-05-21 05:13] LABS: Appearance,Urine Clear (Clear); Bilirubin,Urine Negative (Negative); Blood,Urine Negative (Negative); Color,Urine Colorless; Glucose,Urine (UA) Negative (Negative); Ketones,Urine Negative (Negative); Leukocyte Esterase,Urine Negative (Negative); Nitrite,Urine Negative (Negative); PH, Urine 5.5 (5.0-8.0); Protein,Urine Negative (Negative); Specific Gravity,Urine 1.003 (1.001-1.035); Urobilinogen,Urine <2.0 mg/dL (<2.0)
[2022-05-21] MEDS: NICOTINE 14MG/24HR PATCH TRANSDERM SCH (09:12)
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
[2022-05-21] MEDS: ACETAMINOPHEN TAB 325 MG TAB PO PRN (19:36)
[2022-05-21] MEDS: MELATONIN 5 MG TABLET PO SCH (21:22)
[2022-05-21] MEDS: traZODone HCL 100 MG TAB PO SCH (21:22)
[2022-05-22 07:56] LABS: ALT 20 U/L (4-49); AST 19 U/L (17-59); Albumin 3.4 g/dL (3.5-5.0); Alkaline Phosphatase 62 U/L (38-126); Bilirubin,Unconjugated 0.5 mg/dL (0.0-1.1); Total Bilirubin 0.5 mg/dL (0.2-1.3); Total Protein 5.6 g/dL (6.3-8.2)
[2022-05-22] MEDS: DULoxetine HCL 60 MG CAPSULE.DR PO SCH (10:10)
[2022-05-22] MEDS: ATORVASTATIN 40 MG TAB PO SCH (10:10)
[2022-05-22] MEDS: NICOTINE 14MG/24HR PATCH TRANSDERM SCH (10:10)
[2022-05-22 12:58] LABS: Chol/HDL Ratio 4.24 Ratio; LDL Cholesterol,Calculated 128.4 mg/dL (0.0-131.0)
--- NOTE | 2022-05-22 14:32 | P.PN ---
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 He feels less distressed although she continues to have thoughts of killing his collar pointer and her . Again he asked to speak with his refrigerating oiler. He denied experiencing alcohol withdrawal symptoms. Medical consult appreciated. He attended one therapeutic group. He slept 2 hours last night. He is posed no management problem and had no episodes of behavioral dyscontrol. Mental status exam: He presented as a casually groomed dark skinned male who was subdued, pleasant and cooperative. He walked unsteadily with the aid of a wheeled walker. He made eye contact and attended to the interview. He was dysarthric and his speech at times was difficult to understand. His affect was dysphoric with a mixture of anger and depression. He expressed continued suicidal and homicidal ideation. He complained they cannot stop thinking about killing Alessandro, her and himself. He denied experiencing auditory, visual or olfactory hallucinations. His thinking was concrete, tangential and rambling. Assessment: He is less less preoccupied with suicidal and homicidal thoughts. Plan: Continue inpatient treatment. Safety precautions. Continue psychotropic medications (see medication list). Encourage participation in therapeutic groups and activities. Evaluate clinical status response to treatment daily basis.
[2022-05-22] MEDS: ACETAMINOPHEN TAB 325 MG TAB PO PRN (17:05)
[2022-05-22] MEDS: MELATONIN 5 MG TABLET PO SCH (20:52)
[2022-05-22] MEDS: traZODone HCL 100 MG TAB PO SCH (20:53)
[2022-05-23] MEDS: DULoxetine HCL 60 MG CAPSULE.DR PO SCH (09:03)
[2022-05-23] MEDS: ATORVASTATIN 40 MG TAB PO SCH (09:03)
[2022-05-23] MEDS: ACETAMINOPHEN TAB 325 MG TAB PO PRN (09:04)
[2022-05-23] MEDS: NICOTINE 14MG/24HR PATCH TRANSDERM SCH (09:05)
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
[2022-05-23] MEDS: MELATONIN 5 MG TABLET PO SCH (21:12)
[2022-05-23] MEDS: traZODone HCL 100 MG TAB PO SCH (21:12)
[2022-05-24] MEDS: ATORVASTATIN 40 MG TAB PO SCH (10:14)
[2022-05-24] MEDS: NICOTINE 14MG/24HR PATCH TRANSDERM SCH (10:14)
[2022-05-24] MEDS: DULoxetine HCL 60 MG CAPSULE.DR PO SCH (10:14)
--- NOTE | 2022-05-24 13:35 | P.PN ---
Progress Note - Text Progress Note Date: 05/24/22 Interval History: Patient was seen resting in bed and was directable and agreeable to speak with aligner typewriter in his room. He reports that he continues to experience homicidal ideation towards his ex-fertilizer mixer Alessandro. He reports that if they were to be in the same room right now, he would kill him. He reports no suicidal ideation, intention, and/or plan. He reports no auditory or visual hallucinations. He denies any parnoia or other delusions. He has been adherent with his medications and reports no significant side effects at this time. He is agreeable to starting a mood stabilizer/antipsychotic. Mental Status Exam: General Appearance: Patient appears to be stated age is alert, directable, and cooperative. Mild kyphotic posture. Behavior: Patient is calmly seated without any agitated behavior. Ambulates with the assistance of a walker. Speech: Patient's speech is fluent and nonpressured. Mood/Affect: Mood is "still angry." Affect is congruent and constricted. Suicidality/Homicidality: Patient denies having any suicidal ideation but endorses homicidal ideation. Perceptions: Patient denies any visual hallucinations and denies any auditory hallucinations Though content/process: There is no evidence of any delusional thought content and thought process is linear and goal-directed. Memory and concentration: AOX3, grossly intact for the purposes of this session Judgment and insight: Improving mildly Vital Signs Temp 97.1 F L 05/23/22 06:40 Pulse 85 05/23/22 06:40 Resp 18 05/23/22 06:40 BP 114/75 05/23/22 06:40 Pulse Ox 93 L 05/22/22 06:53 FiO2 Assessment Adjustment disorder with mixed disturbance of emotion and conduct Mild neurocognitive disorder Plan: -Patient continues to meet criteria for inpatient psychiatric admission for symptom stabilization and safety. Patient has signed adult voluntary form and medication consent and was placed in patient's chart. -Medications: Cymbalta 60 mg by mouth daily for depression/neuropathic pain Melatonin 10 mg daily at bedtime for insomnia Trazodone 100 mg daily at bedtime for insomnia Start Abilify 5 mg daily for mood stabilization. -When necessary Ativan and Geodon for agitation/aggression. -NRT - nicotine patch -SW on board for discharge planning. Encouraged the patient to participate in milieu.
[2022-05-24] MEDS: MELATONIN 5 MG TABLET PO SCH (20:34)
[2022-05-24] MEDS: traZODone HCL 100 MG TAB PO SCH (20:34)
[2022-05-25] MEDS: NICOTINE 14MG/24HR PATCH TRANSDERM SCH (08:27)
[2022-05-25] MEDS: DULoxetine HCL 60 MG CAPSULE.DR PO SCH (08:27)
[2022-05-25] MEDS: ATORVASTATIN 40 MG TAB PO SCH (08:28)
[2022-05-25] MEDS ORDERED: ARIPiprazole 5 MG TAB PO SCH (09:00)
--- NOTE | 2022-05-25 11:21 | P.PN ---
Progress Note - Text Progress Note Date: 05/25/22 Interval History: Patient was seen resting in bed and was directable and agreeable to speak with automobile service writer in his room. The patient reports that he is feeling better than yesterday. He did take his Abilify this morning and that it makes him feel calmer. He continues to endorse homicidal ideation towards Alessandro. However the patient history he is feeling like his homicidal thoughts have begun to decrease. He is not reporting any auditory or visual hallucinations. He is denying any paranoia or other delusions. The patient denies any issues regarding his sleep or his appetite. Mental Status Exam: General Appearance: Patient appears to be stated age is alert, directable, and c ooperative. Mild kyphotic posture. Behavior: Patient is calmly seated without any agitated behavior. Ambulates with the assistance of a walker. Speech: Patient's speech is fluent and nonpressured. Mood/Affect: Mood is "feeling a little better." Affect is congruent and constricted. Suicidality/Homicidality: Patient denies having any suicidal ideation but endorses homicidal ideation. Perceptions: Patient denies any visual hallucinations and denies any auditory hallucinations Though content/process: There is no evidence of any delusional thought content and thought process is linear and goal-directed. 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 Patient has signed adult voluntary form and medication consent and was placed in patient's chart. -Medications: Cymbalta 60 mg by mouth daily for depression/neuropathic pain Melatonin 10 mg daily at bedtime for insomnia Trazodone 100 mg daily at bedtime for insomnia Increase Abilify to 10 mg by mouth daily for mood stabilization and homicidal ideation -When necessary Ativan and Geodon for agitation/aggression. -NRT - nicotine patch -SW on board for discharge planning. Encouraged the patient to participate in milieu.
[2022-05-25] MEDS: traZODone HCL 100 MG TAB PO SCH (20:38)
[2022-05-25] MEDS: MELATONIN 5 MG TABLET PO SCH (20:38)
[2022-05-26 07:04] VITALS: BP 110/69; PULSE 97; RESP 16; TEMP 97.8
[2022-05-26] MEDS ORDERED: ARIPiprazole 10 MG TAB PO SCH (09:00)
[2022-05-26] MEDS: ATORVASTATIN 40 MG TAB PO SCH (09:41)
[2022-05-26] MEDS: DULoxetine HCL 60 MG CAPSULE.DR PO SCH (09:41)
[2022-05-26] MEDS: ACETAMINOPHEN TAB 325 MG TAB PO PRN (09:42)
[2022-05-26] MEDS: NICOTINE 14MG/24HR PATCH TRANSDERM SCH (09:42)
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
== END 2022-05-26 15:30 | disposition home or self-care (01) | DRG 882 ==
LOC: EC 23:47 → 3MHU 05-21 04:07
PROVIDERS: ADMIT Psychiatry & Neurology Psychiatry; ATTEND Psychiatry & Neurology Psychiatry
DX: F43.25 Adjustment disorder with mixed disturbance of emotions and conduct (principal); R45.851 Suicidal ideations; F32.9 Major depressive disorder, single episode, unspecified; F10.10 Alcohol abuse, uncomplicated; F17.210 Nicotine dependence, cigarettes, uncomplicated; Z71.6 Tobacco abuse counseling; Z71.41 Alcohol abuse counseling and surveillance of alcoholic; Z71.51 Drug abuse counseling and surveillance of drug abuser; F41.9 Anxiety disorder, unspecified; G31.84 Mild cognitive impairment of uncertain or unknown etiology; G47.00 Insomnia, unspecified; R45.850 Homicidal ideations; Z79.899 Other long term (current) drug therapy; Z87.828 Personal history of other (healed) physical injury and trauma; Z20.822 Contact with and (suspected) exposure to COVID-19
CPT/HCPCS: 36415; 71045; 80053; 80061; 80076; 80143; 80179; 80306; 80320; 81003; 82075; 83036; 83690; 84443; 84484; 85025; 87635; 93005; 99285

== ENCOUNTER 2022-12-16 14:44 | Inpatient (IN) | payer MEDICAID, OTHER ==
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
--- NOTE | 2022-12-16 17:15 | XR ---
EXAMINATION TYPE: XR hand complete LT DATE OF EXAM: 12/16/2022 COMPARISON: NONE HISTORY: Pain TECHNIQUE: 3 views FINDINGS: There is minor spurring at the first carpometacarpal joint. I see no fracture nor dislocati on. There is mild deformity of the head of the first metacarpal that could be osteoarthritis. IMPRESSION: No acute bony abnormality. No evidence of inflammatory arthritis.
[2022-12-16] MEDS ORDERED: ACETAMINOPHEN TAB 325 MG TAB PO STA (22:26)
[2022-12-16 23:17] LABS: Appearance,Urine Clear (Clear); Bilirubin,Urine Negative (Negative); Blood,Urine Negative (Negative); Color,Urine Yellow; Glucose,Urine (UA) Negative (Negative); Ketones,Urine Negative (Negative); Leukocyte Esterase,Urine Negative (Negative); Nitrite,Urine Negative (Negative); Protein,Urine Negative (Negative); Specific Gravity,Urine 1.021 (1.001-1.035)
[2022-12-16 23:28] LABS: Amphetamine Screen,Urine Not Detected (NotDetected); Barbiturate Screen,Urine Not Detected (NotDetected); Benzodiazepines Screen,Urine Not Detected (NotDetected); Cocaine Screen,Urine Detected (NotDetected); Methadone Screen, Urine Not Detected (NotDetected); Opiate Screen,Urine Not Detected (NotDetected); Oxycodone Screen, Urine Not Detected (NotDetected); Phencyclidine Screen,Urine Not Detected (NotDetected); Tricyclic Antidepressant,Urine Not Detected (NotDetected); Urn Cannabinoid Scrn Not Detected (NotDetected)
[2022-12-16] MEDS ORDERED: MAG HYDROX/AL HYDROX/SIMETH 30 ML CUP PO PRN (23:55)
[2022-12-16] MEDS ORDERED: MAGNESIUM HYDROXIDE 2,400 MG/10 ML CUP PO PRN (23:55)
[2022-12-16] MEDS ORDERED: LORazepam 2 MG/ML INJ IM PRN (23:59)
[2022-12-17] MEDS ORDERED: HALOPERIDOL LACTATE 5 MG/ML 1 ML VIAL IM PRN
[2022-12-17] MEDS ORDERED: ALBUTEROL NEBULIZED 2.5 MG/3 ML INHALATION PRN (00:56)
[2022-12-17] MEDS: NICOTINE 14MG/24HR PATCH TRANSDERM SCH (08:15)
[2022-12-17] MEDS: ACETAMINOPHEN TAB 325 MG TAB PO PRN ×4 (08:15→20:44)
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
[2022-12-17 11:22] LABS: Basophils # (A) 0.1 k/uL (0-0.2); Basophils % (A) 1 %; Eosinophils # (A) 0.2 k/uL (0-0.7); Eosinophils % (A) 3 %; HCT 46.8 % (39.0-53.0); HGB 16.4 gm/dL (13.0-17.5); Lymphocytes # (A) 1.4 k/uL (1.0-4.8); Lymphocytes % (A) 23 %; MCH 32.3 pg (25.0-35.0); MCHC 35.2 g/dL (31.0-37.0); MCV 91.9 fL (80.0-100.0); Mean Platelet Volume 7.2; Monocytes # (A) 0.4 k/uL (0-1.0); Monocytes % (A) 6 %; Neutrophils # (A) 3.9 k/uL (1.3-7.7); Neutrophils % (A) 65 %; Platelet Count 352 k/uL (150-450); RBC 5.09 m/uL (4.30-5.90); RDW 13.4 % (11.5-15.5)
[2022-12-17 11:42] LABS: ALT 19 U/L (4-49); AST 17 U/L (17-59); African American GFR (CKD) >90 (>60 ml/min/1.73 sqM); Albumin 3.5 g/dL (3.5-5.0); Alkaline Phosphatase 58 U/L (38-126); Anion Gap 6 mmol/L; Bilirubin, Delta 0.4 mg/dL (0.0-0.2); Bilirubin,Unconjugated 0.3 mg/dL (0.0-1.1); Blood Urea Nitrogen 10 mg/dL (9-20); Carbon Dioxide 23 mmol/L (22-30); Chloride 109 mmol/L (98-107); Glucose 115 mg/dL (74-99); Non-African American GFR(CKD) >90 (>60 ml/min/1.73 sqM); Potassium 4.7 mmol/L (3.5-5.1); Sodium 138 mmol/L (137-145); Total Bilirubin 0.7 mg/dL (0.2-1.3)
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
[2022-12-17] MEDS: haloperidoL 5 MG TAB PO PRN (16:38)
[2022-12-17 17:33] LABS: Chol/HDL Ratio 4.83 Ratio; LDL Cholesterol,Calculated 133.5 mg/dL (0.0-131.0)
[2022-12-17] MEDS: LORazepam 1 MG TAB PO PRN (20:44)
[2022-12-17] MEDS: CEPHALEXIN 500 MG CAP PO SCH (20:45)
--- NOTE | 2022-12-18 08:38 | P.PN ---
Progress Note - Text Progress Note Date: 12/18/22 Subjective/objective data: The patient was laying in bed and seemed to show very little interest in having this interview Patient kept his eyes shut during the interview Patient reports that nothing seems to have improved yet He says that he still continues to go voices When asked about time. Used any drugs and that his structure screen was positive patient denied it Patient states that things do seem to bother him and that people walking in the hallway seemed to be bothersome Patient denies any suicidal ideations at this time Mental status examination: MENTAL STATUS EVALUATION: Appearance: Appears stated age, disheveled appearance, average body built, and no specific features. Gait/ posture: Not tested patient was laying down in bed, no abnormal movements, with relaxed posture. Attitude and Behavior: cooperative, poor eye contact during the course of interview. Patient remains amotivated for assessment and wanting to sleep Motor Activity: Decreased psychomotor activity. Speech: spontaneous, Slow rate, rhythm, and articulation. Low volume. Mood: fine Affect: Flat. Thought content/process: denies suicidal thoughts, denies homicidal thoughts, Denies intentions, or plans. Thought processes are goal-directed sequential and logical Perception: Denies auditory hallucinations. Alertness: No impairment. 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 Patient has signed adult voluntary form and medication consent and is placed in patient's chart. -Medications : Will start patient on Zyprexa 2.5 mg at bedtime to start within titrated to response we'll keep the dose to the Tiffany constricting his issues with ambulation Monitor for mood stabilization/suicidal thoughts. A And homicidal thoughts Started Zyprexa 2.5 mg daily at bedtime for mood adjunct/psychosis/insomnia. -Vistaril and Zyprexa PRN for agitation/aggression -Patient was informed of the risks, benefits and side effects of the medication and patient verbally consented to taking the medications. Patient signed med consent form and was placed in chart. -Internal Medicine consult to perform medical evaluation and physical. -NRT - nicotine patch and gum -SW on board for discharge planning. Encourage patient to participate in groups to work on coping skills. Yohan Soria M.D.
[2022-12-18] MEDS: NICOTINE 14MG/24HR PATCH TRANSDERM SCH (10:00)
[2022-12-18] MEDS: CEPHALEXIN 500 MG CAP PO SCH ×2 (10:00→20:52)
[2022-12-18] MEDS: ACETAMINOPHEN TAB 325 MG TAB PO PRN (15:46)
[2022-12-19] MEDS ORDERED: ALBUTEROL INHALER 60 PUFF/8 GM INHALER (MHU) INHALATION PRN (01:59)
[2022-12-19] MEDS: LORazepam 1 MG TAB PO PRN ×2 (02:16→21:08)
[2022-12-19] MEDS: haloperidoL 5 MG TAB PO PRN (03:14)
[2022-12-19] MEDS: NICOTINE 14MG/24HR PATCH TRANSDERM SCH (11:46)
[2022-12-19] MEDS: CEPHALEXIN 500 MG CAP PO SCH ×2 (11:46→21:06)
--- NOTE | 2022-12-19 12:02 | P.PN ---
Progress Note - Text Progress Note Date: 12/19/22 Interval History: Patient was seen resting in bed and was directable and agreeable to speak with automobile service writer in the room. Currently, the patient is not reporting any suicidal or homicidal ideation, intention, and/or plan. He is not reporting any auditory or visual hallucinations. He denies any paranoia or other delusions. The patient reports that he is having difficulty with sleep. He is not endorsing any significant symptoms of ruth or hypomania. He reports no racing thoughts, grandiosity, or increased goal-directed activity. Patient does acknowledge that substance abuse plays a role in his psychotic and homicidal thoughts. He is vehemently denying any homicidal ideation or any access to firearms or other weapons. He has not started any antipsychotic medication since admission. He is agreeable to starting Zyprexa tonight. Mental Status Exam: General Appearance: Patient appears to be stated age is alert, directable, and cooperative. Behavior: Patient is calmly seated without any agitated behavior. Speech: Patient's speech is fluent and nonpressured. Mood/Affect: Mood is improving mildly, affect is congruent and constricted. Suicidality/Homicidality: Patient denies having any suicidal or homicidal ideation intent or plan. Perceptions: Patient denies any visual hallucinations and denies any auditory hallucinations Though content/process: There is no evidence of any delusional thought content and thought process is linear and goal-directed. Memory and concentration: AOX3, grossly intact for the purposes of this session Judgment and insight: Improving mildly Vital Signs Temp 97.8 F 12/19/22 03:29 Pulse 97 12/19/22 03:29 Resp 16 12/19/22 03:29 BP 143/95 12/19/22 03:29 Pulse Ox 98 12/19/22 03:29 FiO2 Intake & Output 12/18/22 12/19/22 12/19/22 18:59 06:59 18:59 Weight 86 kg Assessment Substance-induced psychosis (cocaine) Schizophrenia, by history Cocaine use disorder Plan: -Patient continues to meet criteria for inpatient psychiatric admission for symptom stabilization and safety. Patient has signed adult voluntary form and medication consent and was placed in patient's chart. -Medications: Start Zyprexa 5 mg by mouth at bedtime for psychosis -When necessary Ativan and Haldol for agitation/aggression. -NRT - nicotine patch, gum -SW on board for discharge planning. Encouraged the patient to participate in milieu.
[2022-12-19] MEDS: ACETAMINOPHEN TAB 325 MG TAB PO PRN (14:57)
[2022-12-19] MEDS ORDERED: OLANZapine ODT 5 MG TAB PO SCH (21:00)
[2022-12-20] MEDS: NICOTINE 14MG/24HR PATCH TRANSDERM SCH (08:38)
[2022-12-20] MEDS: CEPHALEXIN 500 MG CAP PO SCH ×2 (08:38→19:43)
--- NOTE | 2022-12-20 11:56 | P.PN ---
Progress Note - Text Progress Note Date: 12/20/22 Interval History: Patient was seen resting in bed and was directable and agreeable to speak with magazine writer in the room. Currently, patient is not reporting any suicidal or homicidal ideation, intention, and/or plan. He reports that he had difficulty with sleep last night stating that he only got to bed around 4 AM. Despite this, the patient reports that he has been able to get out of bed for meals. He has been adherent with his medication and is not endorsing any significant side effects. He reports no auditory or visual hallucinations. He denies any paranoia or other delusions. He remains primarily isolative to himself in his room and was encouraged to participate in milieu activities. He reports no chest pain, shortness of breath, or palpitations. Mental Status Exam: General Appearance: Patient appears to be stated age is alert, directable, and cooperative. Behavior: Patient is calmly seated without any agitated behavior. Speech: Patient's speech is fluent and nonpressured. Mood/Affect: Mood is improving mildly, affect is congruent and constricted. Suicidality/Homicidality: Patient denies having any suicidal or homicidal ideation intent or plan. Perceptions: Patient denies any visual hallucinations and denies any auditory hallucinations Though content/process: There is no evidence of any delusional thought content and thought process is linear and goal-directed. Memory and concentration: AOX3, grossly intact for the purposes of this session Judgment and insight: Improving mildly Vital Signs Temp 96.1 F L 12/20/22 03:00 Pulse 117 H 12/20/22 03:00 Resp 17 12/20/22 03:00 BP 127/85 12/20/22 03:00 Pulse Ox 98 12/20/22 03:00 FiO2 Assessment Substance-induced psychosis (cocaine) Schizophrenia, by history Cocaine use disorder Plan: -Patient continues to meet criteria for inpatient psychiatric admission for symptom stabilization and safety. Patient has signed adult voluntary form and medication consent and was placed in patient's chart. -Medications: Increase Zyprexa to 10 mg by mouth at bedtime for psychosis and insomnia -When necessary Ativan and Haldol for agitation/aggression. -NRT - nicotine patch, gum -SW on board for discharge planning. Encouraged the patient to participate in milieu.
[2022-12-20] MEDS: ACETAMINOPHEN TAB 325 MG TAB PO PRN (19:43)
[2022-12-20] MEDS ORDERED: OLANZapine ODT 10 MG TAB PO SCH (21:00)
[2022-12-21 06:40] VITALS: BP 97/53; PULSE 80; RESP 18; TEMP 97.9
[2022-12-21] MEDS: NICOTINE 14MG/24HR PATCH TRANSDERM SCH (10:00)
[2022-12-21] MEDS: CEPHALEXIN 500 MG CAP PO SCH (10:00)
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
== END 2022-12-21 12:24 | disposition home or self-care (01) | DRG 774 ==
LOC: EC 14:44 → UNDOADMIN 23:37 → 3MHU 23:37
PROVIDERS: ADMIT Psychiatry & Neurology Psychiatry; ATTEND Psychiatry & Neurology Psychiatry
DX: F14.159 Cocaine abuse with cocaine-induced psychotic disorder, unspecified (principal); F17.200 Nicotine dependence, unspecified, uncomplicated; F20.9 Schizophrenia, unspecified; R45.850 Homicidal ideations; R45.851 Suicidal ideations; Z87.820 Personal history of traumatic brain injury; Z20.822 Contact with and (suspected) exposure to COVID-19
CPT/HCPCS: 80053; 80061; 80306; 81003; 82075; 82248; 83036; 84443; 85025; 87635; 99285

== ENCOUNTER 2022-12-30 18:58 | Emergency (ER) | payer OTHER ==
--- NOTE | 2022-12-30 20:01 | XR ---
EXAMINATION TYPE: XR chest 2V DATE OF EXAM: 12/30/2022 COMPARISON: NONE TECHNIQUE: PA and lateral views submitted. HISTORY: Pain post fall FINDINGS: The lungs are clear and there is no pneumothorax, pleural effusion, or focal pneumonia. Heart size normal and no overt failure. Osseous structures demonstrate hypertrophic and degenerative changes of the spine. IMPRESSION: 1. No acute process.
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
--- NOTE | 2022-12-30 20:34 | CT ---
EXAMINATION TYPE: CT brain cspine wo con DATE OF EXAM: 12/30/2022 COMPARISON: 12/29/2019 HISTORY: Fall, pain CT DLP: 1612.1 mGycm Automated exposure control for dose reduction was used. TECHNIQUE: CT scan of the head and cervical spine are performed without contrast. FINDINGS: There is mild generalized degenerative change and there is low attenuation within the whi te matter bilaterally which is nonspecific. Most likely secondary to microvascular remote ischemic ch ramón. No midline shift or mass effect. Tiny punctate calcification in the right basal ganglia stable from prior exam. Changes of chronic sinusitis noted. Assessment spinal canal nondiagnostic due to artifact and resolution. There is a scoliotic curvature with severe multilevel degenerative disc disease and facet arthropathy. Large anterior hypertrophic s purring at multiple levels with no definite acute fracture. Odontoid intact. IMPRESSION: 1. There is no acute fracture or dislocation evident in the cervical spine. Multilevel significant de generative disc disease and facet arthropathy with multilevel foraminal encroachment. Multilevel armaan l stenosis suspected. 2. No acute intracranial hemorrhage, mass effect, or midline shift is seen.
[2022-12-30 20:53] VITALS: BP 126/52; PULSE 68; RESP 14; TEMP 97.4
== END 2022-12-30 20:53 | disposition home or self-care (01) ==
LOC: EC 18:58
DX: S13.9XXA Sprain of joints and ligaments of unspecified parts of neck, initial encounter (principal); S20.212A Contusion of left front wall of thorax, initial encounter; F41.9 Anxiety disorder, unspecified; F32.A Depression, unspecified; F17.200 Nicotine dependence, unspecified, uncomplicated; Z91.013 Allergy to seafood; Z91.030 Bee allergy status; W01.0XXA Fall on same level from slipping, tripping and stumbling without subsequent striking against object, initial encounter
CPT/HCPCS: 70450; 71046; 72125; 99284

== ENCOUNTER 2024-04-19 09:24 | Emergency (ER) | payer OTHER ==
[2024-04-19 09:30] VITALS: RESP 18
[2024-04-19] MEDS: KETOROLAC 15 MG/ML 1 ML VIAL IM STA (09:49)
[2024-04-19] MEDS: MORPHINE SULFATE 4 MG/ML SYRINGE IM STA (09:51)
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
--- NOTE | 2024-04-19 10:24 | XR ---
EXAMINATION TYPE: XR tibia fibula RT DATE OF EXAM: 04/19/2024 COMPARISON: NONE HISTORY: Pain TECHNIQUE: Two views are submitted. FINDINGS: The osseous structures are intact. The joint spaces are preserved. There is a remote healed fractur e of the distal tibia and fibula. Marginal spurring of the patella. Mild changes of osteoarthritis of the knee. Tiny plantar calcaneal spur. IMPRESSION: 1. No acute osseous abnormality. Remote fracture distal tibia.
[2024-04-19] MEDS: traMADol 50 MG STARTER PACK 3 TAB BTL PO STA (10:56)
[2024-04-19 11:02] VITALS: BP 110/72; PULSE 88; TEMP 98
== END 2024-04-19 10:58 | disposition home or self-care (01) ==
LOC: EC 09:24
DX: S80.11XA Contusion of right lower leg, initial encounter (principal); F17.200 Nicotine dependence, unspecified, uncomplicated; Z91.030 Bee allergy status; Z91.013 Allergy to seafood; Z86.73 Personal history of transient ischemic attack (TIA), and cerebral infarction without residual deficits; W01.0XXA Fall on same level from slipping, tripping and stumbling without subsequent striking against object, initial encounter
CPT/HCPCS: 73590; 99283; 96372 ×2; J2270; J1885

== ENCOUNTER 2025-02-04 12:06 | Inpatient (IN) | payer MEDICAID, OTHER ==
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
[2025-02-04] MEDS: IBUPROFEN 800 MG TAB PO STA (12:57)
--- NOTE | 2025-02-04 13:36 | XR ---
EXAMINATION TYPE: XR ankle complete LT DATE OF EXAM: 02/04/2025 1:03 PM COMPARISON: None. CLINICAL INDICATION: Male, 59 years old with history of left ankle injury, pain TECHNIQUE: XR ankle complete LT; frontal, lateral and oblique projections. FINDINGS: Acute fracture distal fibula with intra-articular extension into the ankle and the distal tibiofibula r joint. Mild posterior displacement. Soft tissue swelling around the ankle. IMPRESSION: Acute fracture through the distal fibula with intra-articular extension into the distal tibiofibular joint and ankle mortise. No additional fractures. There is associated soft tissue swelling. [facility], , 02/04/2025 1:33 PM
[2025-02-04] MEDS ORDERED: ALBUTEROL INHALER 60 PUFF/8 GM INHALER (MHU) INHALATION PRN (17:19)
[2025-02-04] MEDS ORDERED: haloperidoL 5 MG TAB PO PRN (17:23)
[2025-02-04] MEDS ORDERED: traZODone HCL 50 MG TAB PO PRN (17:23)
[2025-02-04] MEDS ORDERED: LORazepam 2 MG/ML INJ IM PRN (17:23)
[2025-02-04] MEDS ORDERED: HALOPERIDOL LACTATE 5 MG/ML 1 ML VIAL IM PRN (17:23)
[2025-02-04] MEDS ORDERED: MAG HYDROX/AL HYDROX/SIMETH 355 ML BOTTLE PO PRN (17:23)
[2025-02-04] MEDS ORDERED: MAGNESIUM HYDROXIDE 2,400 MG/30 ML CUP PO PRN (17:23)
[2025-02-04] MEDS: ACETAMINOPHEN TAB 325 MG TAB PO PRN (21:01)
[2025-02-04] MEDS: IBUPROFEN 600 MG TAB PO PRN (21:53)
[2025-02-05 07:55] LABS: Basophils # (A) 0.05 10*3/uL (0.00-0.10); Basophils % (A) 0.7 %; Eosinophils # (A) 0.25 10*3/uL (0.04-0.35); Eosinophils % (A) 3.5 %; HGB 13.6 g/dL (13.0-17.0); Lymphocytes # (A) 1.24 10*3/uL (0.90-5.00); Lymphocytes % (A) 17.6 %; MCH 32.5 pg (27.0-32.0); MCHC 36.8 g/dL (32.0-37.0); MCV 88.5 fL (80.0-97.0); Mean Platelet Volume 8.7 fL (9.5-12.2); Monocytes # (A) 0.62 10*3/uL (0.20-1.00); Monocytes % (A) 8.8 %; Neutrophils # (A) 4.87 10*3/uL (1.80-7.70); Platelet Count 383 10*3/uL (140-440); RBC 4.18 10*6/uL (4.40-5.60); RDW 12.3 % (11.5-14.5); WBC 7.06 10*3/uL (4.50-10.00)
[2025-02-05 08:10] LABS: ALT 22 U/L (4-49); AST 23 U/L (17-59); African American GFR (CKD) >90 (>60 ml/min/1.73 sqM); Albumin 3.6 g/dL (3.5-5.0); Alkaline Phosphatase 74 U/L (38-126); Anion Gap 7 mmol/L; Blood Urea Nitrogen 15 mg/dL (9-20); Calcium 9.7 mg/dL (8.4-10.2); Carbon Dioxide 23 mmol/L (22-30); Chloride 108 mmol/L (98-107); Glucose 112 mg/dL (74-99); Non-African American GFR(CKD) 88 (>60 ml/min/1.73 sqM); Potassium 4.2 mmol/L (3.5-5.1); Sodium 138 mmol/L (137-145); Total Protein 6.5 g/dL (6.3-8.2)
[2025-02-05] MEDS: ASPIRIN 325 MG TAB PO SCH (09:04)
[2025-02-05] MEDS: ATORVASTATIN 80 MG TAB PO SCH (09:04)
[2025-02-05] MEDS: CLOPIDOGREL 75 MG TAB PO SCH (09:04)
[2025-02-05] MEDS: NICOTINE 14MG/24HR PATCH TRANSDERM SCH (09:04)
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
[2025-02-05 15:31] LABS: Chol/HDL Ratio 4.71 Ratio; LDL Cholesterol,Calculated 80.1 mg/dL (0.0-131.0)
[2025-02-05] MEDS: LORazepam 1 MG TAB PO PRN (15:35)
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
[2025-02-05] MEDS: OLANZapine 5 MG TAB PO SCH (20:12)
[2025-02-05] MEDS: HYDROcodone/APAP 5-325MG 1 EACH TAB PO PRN (21:00)
[2025-02-05 21:47] VITALS: RESP 18
[2025-02-06] MEDS ORDERED: CHOLECALCIFEROL 125 MCG (5000 IU) TABLET PO SCH (09:00)
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
[2025-02-06 10:08] VITALS: BP 111/65; PULSE 78; TEMP 97.4
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
[2025-02-06] MEDS ORDERED: OLANZapine 7.5 MG TAB PO SCH (21:00)
[2025-02-10] MEDS ORDERED: ERGOCALCIFEROL 1,250 MCG (50,000 IU) CAPSULE PO SCH (09:00)
== END 2025-02-06 14:55 | disposition short-term general hospital (02) | DRG 751 ==
LOC: EC 12:06 → 3MHU 17:15
PROVIDERS: ADMIT Psychiatry & Neurology Psychiatry; ATTEND Psychiatry & Neurology Psychiatry
DX: F39 Unspecified mood [affective] disorder (principal); E78.5 Hyperlipidemia, unspecified; F14.11 Cocaine abuse, in remission; F17.200 Nicotine dependence, unspecified, uncomplicated; F22 Delusional disorders; R45.850 Homicidal ideations; S82.62XD Displaced fracture of lateral malleolus of left fibula, subsequent encounter for closed fracture with routine healing; W10.9XXD Fall (on) (from) unspecified stairs and steps, subsequent encounter; Z91.81 History of falling; Z56.0 Unemployment, unspecified; Z79.02 Long term (current) use of antithrombotics/antiplatelets; Z79.82 Long term (current) use of aspirin; Z79.899 Other long term (current) drug therapy; Z87.820 Personal history of traumatic brain injury; Z79.891 Long term (current) use of opiate analgesic; Z65.3 Problems related to other legal circumstances; Z60.2 Problems related to living alone; F41.9 Anxiety disorder, unspecified
CPT/HCPCS: 80053; 80061; 82075; 83036; 84443; 85025; 87635; 99285

== ENCOUNTER 2025-03-13 14:26 | Observation (INO) | payer OTHER ==
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
[2025-03-13] MEDS: ACETAMINOPHEN TAB 500 MG TAB PO STA (15:08)
[2025-03-13] MEDS: KETOROLAC 15 MG/ML 1 ML VIAL IM STA (15:08)
--- NOTE | 2025-03-13 15:59 | XR ---
EXAMINATION TYPE: XR tibia fibula LT, XR ankle complete LT DATE OF EXAM: 03/13/2025 3:45 PM COMPARISON: None CLINICAL INDICATION: Male, 60 years old with history of Increase LLE and ankle pain, recent ORIF;, pa in TECHNIQUE: XR tibia fibula LT, XR ankle complete LT; examined in AP and lateral projections. Frontal lateral oblique views of the ankle. FINDINGS: Fixation hardware in the distal fibula appears intact. There is soft tissue swelling around the distal fibula. Fracture remains present. Pretibial soft tissue edema noted over the tibial tuber osity and around the ankle. No new acute fractures. IMPRESSION: Post fixation changes to the distal fibula with hardware intact. Soft tissue swelling around the frac ture site/surgical site correlate for infection. No new acute fractures. [facility], , 03/13/2025 3:57 PM
[2025-03-13] MEDS: ASPIRIN 81 MG PO STA (16:48)
[2025-03-13] MEDS: SULFAMETHOX-TMP 800-160MG 1 EACH TAB PO STA (16:48)
[2025-03-13] MEDS: CEPHALEXIN 500 MG CAP PO STA (16:48)
[2025-03-13 16:51] LABS: Basophils # (A) 0.08 10*3/uL (0.00-0.10); Basophils % (A) 1.2 %; Eosinophils # (A) 0.29 10*3/uL (0.04-0.35); Eosinophils % (A) 4.3 %; HCT 36.5 % (39.6-50.0); Lymphocytes # (A) 1.51 10*3/uL (0.90-5.00); Lymphocytes % (A) 22.3 %; MCH 31.5 pg (27.0-32.0); MCHC 35.6 g/dL (32.0-37.0); MCV 88.4 fL (80.0-97.0); Mean Platelet Volume 8.7 fL (9.5-12.2); Monocytes % (A) 8.9 %; Neutrophils # (A) 4.26 10*3/uL (1.80-7.70); Neutrophils % (A) 62.9 %; Platelet Count 388 10*3/uL (140-440); RBC 4.13 10*6/uL (4.40-5.60); RDW 13.2 % (11.5-14.5); WBC 6.77 10*3/uL (4.50-10.00)
[2025-03-13 16:58] LABS: ALT 23 U/L (4-49); African American GFR (CKD) >90 (>60 ml/min/1.73 sqM); Anion Gap 7 mmol/L; Blood Urea Nitrogen 8 mg/dL (9-20); Calcium 9.2 mg/dL (8.4-10.2); Carbon Dioxide 20 mmol/L (22-30); Chloride 110 mmol/L (98-107); Glucose 128 mg/dL (74-99); Non-African American GFR(CKD) >90 (>60 ml/min/1.73 sqM); Sodium 137 mmol/L (137-145)
[2025-03-13 17:00] LABS: Albumin 4.1 g/dL (3.5-5.0)
[2025-03-13 17:01] LABS: AST 33 U/L (17-59); Alkaline Phosphatase 79 U/L (38-126); Total Bilirubin 1.4 mg/dL (0.2-1.3)
--- NOTE | 2025-03-13 17:01 | XR ---
EXAMINATION TYPE: XR chest 2V DATE OF EXAM: 03/13/2025 4:58 PM COMPARISON: Chest radiographs from 04/10/2023 TECHNIQUE: XR chest 2V Frontal and lateral views of the chest. CLINICAL INDICATION:Male, 60 years old with history of Sudden onset chest pain; FINDINGS: Lungs/Pleura: There is no evidence of pleural effusion, focal consolidation, or pneumothorax. Pulmonary vascularity: Unremarkable. Heart/mediastinum: Cardiomediastinal silhouette is unremarkable. Musculoskeletal: No acute osseous pathology. IMPRESSION: No acute cardiopulmonary disease/process. [facility], , 03/13/2025 4:59 PM
[2025-03-13 17:58] LABS: INR 0.9 (<1.2); Prothrombin Time 10.4 sec (10.0-12.5)
[2025-03-13 18:04] LABS: Partial Thromboplastin Time 21.7 sec (22.0-30.0)
[2025-03-13] MEDS ORDERED: NALOXONE 0.4 MG/ML 1 ML VIAL IV PRN (18:35)
[2025-03-13] MEDS ORDERED: ONDANSETRON 4 MG/2 ML VIAL IVP PRN (18:35)
[2025-03-13] MEDS: MORPHINE SULFATE 4 MG/ML SYRINGE IVP STA (18:35)
[2025-03-13] MEDS: NITROGLYCERIN SL TABS 0.4 MG TAB SUBLINGUAL STA (18:35)
--- NOTE | 2025-03-13 20:27 | US ---
EXAMINATION TYPE: US venous doppler duplex LE LT DATE OF EXAM: 03/13/2025 7:34 PM COMPARISON: NONE CLINICAL INDICATION: Male, 60 years old with history of leg swelling, elevated D-dimer; elevated d di ricardo. left leg swelling. no pain, TECHNIQUE: The lower extremity deep venous system is examined utilizing real time linear array sonog aguilar with graded compression, color doppler sonography, and spectral doppler. SIDE PERFORMED: Left FINDINGS: VESSELS IMAGED: Common Femoral Vein Deep Femoral Vein Greater Saphenous Vein * Femoral Vein Popliteal Vein Small Saphenous Vein * Proximal Calf Veins (* superficial vessels) Left Leg: Negative for DVT, Color Doppler imaging shows patency of the vessels. Spectral waveforms a re within normal limits. IMPRESSION: No evidence of deep vein thrombosis of the left lower extremity. [facility], , 03/13/2025 8:24 PM
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
--- NOTE | 2025-03-13 21:34 | CT ---
EXAMINATION TYPE: CT chest angio for PE CT DLP: 384.3 mGycm, Automated exposure control for dose reduction was used. DATE OF EXAM: 03/13/2025 9:06 PM COMPARISON: Chest radiograph 03/13/2025 CLINICAL INDICATION:Male, 60 years old with history of Dyspnea; Dyspnea TECHNIQUE/CONTRAST: CTA scan of the thorax is performed with IV Contrast, patient injected with 100 mL of Isovue 370, pul monary embolism protocol. MIP images are created and reviewed. FINDINGS: Pulmonary Artery: There is no evidence for a filling defect within the pulmonary vasculature to sugge st acute pulmonary embolism. The pulmonary artery is of normal size. Lungs/Pleura: No evidence of focal consolidation, pleural effusion or pneumothorax. Minimal bilateral lower lobe dependent subsegmental atelectasis. No suspicious pulmonary nodule or mass. Airway: Large airways are patent. Heart: Size within normal limits.No pericardial effusion. No significant coronary artery calcificatio ns. Vasculature: No evidence of aortic aneurysm. Bovine aortic arch. Mediastinum: No evidence of adenopathy. Musculoskeletal: No acute osseous abnormalities. Remote healed posterior left lower rib fractures. Soft Tissues: Unremarkable. Lower neck: No significant findings. Upper Abdomen: No significant findings. IMPRESSION: No evidence of pulmonary embolism or acute thoracic process. [facility], , 03/13/2025 9:31 PM
[2025-03-13] MEDS: OLANZapine 10 MG TAB PO SCH (22:08)
[2025-03-13] MEDS: MELATONIN 5 MG TABLET PO SCH (22:09)
[2025-03-13] MEDS: DIVALPROEX 500 MG TABLET.DR PO SCH (22:09)
[2025-03-13] MEDS: MORPHINE SULFATE 4 MG/ML SYRINGE IV PRN (23:50)
[2025-03-14 05:39] LABS: Urine Alcohol Negative (Negative); Urine Barbiturate Negative (Negative); Urine Cocaine Positive (Negative); Urine Methadone Negative (Negative); Urine Opiates Positive (Negative); Urine Phencyclidine Negative (Negative)
[2025-03-14 06:16] LABS: HCT 34.8 % (39.6-50.0); MCHC 34.5 g/dL (32.0-37.0); MCV 89.9 fL (80.0-97.0); Mean Platelet Volume 8.6 fL (9.5-12.2); Platelet Count 360 10*3/uL (140-440); RBC 3.87 10*6/uL (4.40-5.60); RDW 13.3 % (11.5-14.5); WBC 6.53 10*3/uL (4.50-10.00)
[2025-03-14 06:39] LABS: African American GFR (CKD) >90 (>60 ml/min/1.73 sqM); Anion Gap 8 mmol/L; Blood Urea Nitrogen 8 mg/dL (9-20); Calcium 9.2 mg/dL (8.4-10.2); Carbon Dioxide 22 mmol/L (22-30); Chloride 106 mmol/L (98-107); Glucose 158 mg/dL (74-99); Non-African American GFR(CKD) >90 (>60 ml/min/1.73 sqM); Potassium 3.9 mmol/L (3.5-5.1); Sodium 136 mmol/L (137-145)
[2025-03-14] MEDS: ATORVASTATIN 80 MG TAB PO SCH (09:18)
[2025-03-14] MEDS: ENOXAPARIN 40 MG/0.4 ML SYRINGE SQ SCH (09:18)
[2025-03-14] MEDS: ASPIRIN 81 MG PO SCH (09:18)
[2025-03-14] MEDS: CLOPIDOGREL 75 MG TAB PO SCH (09:18)
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
[2025-03-14 10:45] LABS: C Reactive Protein <0.30 mg/dL (0.00-0.80); Uric Acid 4.7 mg/dL (3.7-8.7)
[2025-03-14 10:51] LABS: Chol/HDL Ratio 4.49 Ratio; LDL Cholesterol,Calculated 94.6 mg/dL (0.0-131.0)
[2025-03-14] MEDS: ALBUTEROL NEBULIZED 2.5 MG/3 ML INHALATION PRN (16:15)
--- NOTE | 2025-03-14 17:26 | P.PN ---
Subjective Progress Note Date: 03/14/25 Hospital course: Patient is a 60-year-old male with a past medical history of previous CVA/TIA, hyperlipidemia, nicotine dependence, cocaine use/abuse, anxiety with depression, closed head injury, and recent ankle fracture status post surgical repair on 02/06/2025. He presented to the hospital on 03/13/2025 with a chief complaint of left lower extremity pain and swelling along with chest pain and shortness of breath after recent use of cocaine. Patient did admit that when he was discharged after surgery he was discharged with a walking boot and walker but states he has not been using it and has been ambulating on left foot without walking boot and not using walker as previously instructed. Upon arrival to our facility, patient underwent evaluation in the emergency department. Vital signs upon arrival revealed blood pressure 111/73, heart rate 88, respiratory rate 18, temp 98.1 F, and SpO2 of 97% on room air. EKG completed showing sinus mechanism at 72 bpm with LVH and T wave inversion of inferior lead III. Chest x-ray negative for acute cardiopulmonary process. X-ray left ankle and tib-fib completed showing post fixation changes to distal fibula with hardware intact and soft tissue swelling around the fracture site. Venous Doppler left lower extremity negative for DVT. CTA chest completed negative for PE. Labs were completed and reviewed. CBC showing low hematocrit of 36.5 otherwise no significant abnormalities. Coagulation profile showing low PTT of 21.7 and elevated D-dimer of 1.29. BMP showing metabolic acidosis with chloride of 110, bicarb of 20, and anion gap of 7. Blood glucose was 128. Magnesium 2.0. Lactic acid 9.2. Liver profile showing hyperbilirubinemia with total bili 1.4. Troponin was 0.031. Urine drug screen positive for opiates and cocaine. P atient was admitted under services with consultation to cardiology and orthopedic surgery. Troponins were trended resulting at 0.031 and less than 0.012. Orthopedic surgery evaluated and discussed case with orthopedic surgery PA stating they have reviewed imaging and no concerns of infectious process, recommending patient to stay nonweightbearing of left ankle to allow time for adequate healing, ice and elevation of left lower extremity and use of walking boot with either walker or crutches at this time and for patient to follow-up outpatient in their office in 1 to 2 weeks. Cardiology evaluated recommending completion of echocardiogram and if normal, clearing patient from their perspective recommending outpatient stress testing in their office in 1 week. Physical exam: Vital signs reviewed and stable. General: Nontoxic, no distress and appears stated age. Derm: Skin warm and dry, normal coloration for ethnicity. Head: Atraumatic, normocephalic and symmetric. Eyes: EOM's intact, no lid lag, and anicteric sclera Mouth: no lip lesions, mucus membranes moist Cardiovascular: regular rate and rhythm with normal S1S2, no murmur, positive posterior tibial pulses bilaterally, and cap refill < 2 seconds. Lungs: Respirations even, regular, and unlabored on room air. Lungs CTA b ilaterally, no rhonchi, no rales, no wheezing, and no accessory muscle usage. Abdominal: soft, nontender to palpation, no guarding, no appreciable organomegaly Ext: No gross muscle atrophy, no edema, no contractures. Movement and sensation intact. Patient with noted swelling left lateral ankle. Surgical incision site appears to be well-healed, no increased warmth, surrounding erythema, or drainage noted. Neuro: Speech clear, face symmetrical and CN II-XII grossly intact with no noted focal neuro deficits Psych: Alert and oriented to person, place, time, and situation. Appropriate and pleasant affect. Assessment and Plan of Care: Chest pain, acute coronary event ruled out Cocaine abuse -Cardiology following, discussed plan of care with cardiac ROLL PRESS OPERATOR. Stating cardiology clearing patient from their perspective recommending outpatient stress testing in the office in 1 week if echocardiogram is normal. -Telemetry monitoring - Troponins 0.031 and less than 0.012. -Aspirin 81 mg daily, atorvastatin 80 mg daily, and Plavix 75 mg daily, -Lipid profile showing a low HDL of 35.60. TSH normal findings at 1.550. -Echocardiogram Left lower extremity pain and swelling status post left lateral malleolus fracture repair Noncompliance with postsurgical instructions -CRP negative at less than 0.30. WBC count normal findings 6.53. -Left lower extremity Doppler negative for DVT -Orthopedic surgery following and discussed plan of care with orthopedic surgery PA stating patient was evaluated and they have reviewed imaging and no concerns of infectious process, recommending patient to stay nonweightbearing of left ankle to allow time for adequate healing, ice and elevation of left lower extremity and use of walking boot with either walker or crutches at this time and for patient to follow-up outpatient in their office in 1 to 2 weeks. . Anxiety with depression Close head injury Continue daily medication regimen with Zyprexa 10 mg nightly and Depakote 500 mg nightly. Data and imaging reviewed: Vital signs reviewed. Blood pressure 105/60, heart rate 69, respiratory rate 17, temp 98.0 F, and SpO2 of 92% on room air Labs reviewed Troponins 0.031 and less than 0.012. Showing stable normocytic anemia with hemoglobin of 12.0. BMP showing sodium 136. Blood glucose 158. Lipid profile showing low HDL of 35.60 otherwise normal findings. Procalcitonin less than 0.20. CRP less than 0.30. Urine drug screen positive for opiates and cocaine. Hemoglobin A1c was elevated at 7.3% CODE STATUS: Full code DVT prophylaxis: Lovenox Discussed with: Patient, RN, cardiology ROLL PRESS OPERATOR, and Ortho PA Anticipated discharge date: Pending echocardiogram results, likely later today Anticipated discharge place: Home Patient was seen independently by Nurse Pracitioner. This document was prepared using L3 dictation software. Please allow for errors in french lecturer, while rare they do occur. Maximilian Mccall NP rendered care for this patient independently, reviewed the findin gs and plan as documented in the note above and agree with plan. I did not physically speak with or examine the patient on this date. Objective - Vital Signs Vital signs: Vital Signs Temp 98.0 F 03/14/25 07:18 Pulse 69 03/14/25 07:18 Resp 17 03/14/25 07:18 BP 105/60 03/14/25 07:18 Pulse Ox 92 L 03/14/25 07:18 FiO2 Intake & Output 03/13/25 03/14/25 03/14/25 18:59 06:59 18:59 Output Total 300 350 Balance -300 -350 Weight 94.347 kg 94.347 kg Output: Urine 300 350 Other: Voiding Method Toilet Urinal - Labs CBC & Chem 7: 03/14/25 05:46 03/14/25 05:46 Labs: Abnormal Lab Results - Last 24 Hours (Table) 03/13/25 03/13/25 03/13/25 Range/Units 16:39 16:39 17:30 RBC 4.13 L (4.40-5.60) 10*6/uL Hgb (13.0-17.0) g/dL Hct 36.5 L (39.6-50.0) % MPV 8.7 L (9.5-12.2) fL APTT 21.7 L (22.0-30.0) sec D-Dimer (<0.60) mg/L FEU Sodium (137-145) mmol/L Chloride 110 H (98-107) mmol/L Carbon Dioxide 20 L (22-30) mmol/L BUN 8 L (9-20) mg/dL Glucose 128 H (74-99) mg/dL Hemoglobin A1c (<=6.0) % Total Bilirubin 1.4 H (0.2-1.3) mg/dL Urine Opiates Screen (Negative) Urine Cocaine Screen (Negative) 03/13/25 03/13/25 03/14/25 Range/Units 17:30 22:32 05:46 RBC (4.40-5.60) 10*6/uL Hgb (13.0-17.0) g/dL Hct (39.6-50.0) % MPV (9.5-12.2) fL APTT (22.0-30.0) sec D-Dimer 1.29 H (<0.60) mg/L FEU Sodium (137-145) mmol/L Chloride (98-107) mmol/L Carbon Dioxide (22-30) mmol/L BUN (9-20) mg/dL Glucose (74-99) mg/dL Hemoglobin A1c 7.3 H (<=6.0) % Total Bilirubin (0.2-1.3) mg/dL Urine Opiates Screen Positive A (Negative) Urine Cocaine Screen Positive A (Negative) 03/14/25 03/14/25 Range/Units 05:46 05:46 RBC 3.87 L (4.40-5.60) 10*6/uL Hgb 12.0 L (13.0-17.0) g/dL Hct 34.8 L (39.6-50.0) % MPV 8.6 L (9.5-12.2) fL APTT (22.0-30.0) sec D-Dimer (<0.60) mg/L FEU Sodium 136 L (137-145) mmol/L Chloride (98-107) mmol/L Carbon Dioxide (22-30) mmol/L BUN 8 L (9-20) mg/dL Glucose 158 H (74-99) mg/dL Hemoglobin A1c (<=6.0) % Total Bilirubin (0.2-1.3) mg/dL Urine Opiates Screen (Negative) Urine Cocaine Screen (Negative)
[2025-03-15 07:34] VITALS: BP 98/59; PULSE 76; RESP 16; TEMP 98.1
[2025-03-15] MEDS: ACETAMINOPHEN TAB 325 MG TAB PO PRN (09:07)
--- NOTE | 2025-03-15 14:06 | P.EN ---
Echocardiogram software is not working appropriately Prelim echo report: LVEF 55 to 60% No obvious regional wall motion abnormality No significant valvular dysfunction Normal RV size and systolic function No pericardial effusion
--- NOTE | 2025-03-15 14:23 | P.DS ---
Providers Date of admission: 03/13/25 19:20 Expected date of discharge: 03/15/25 Attending physician: Jimmy Vila Consults: 03/13/25 18:35 Consult Physician Stat Consulting Provider: Ranjith Rose Consult Reason/Comments: Chest pain Do you want consulting provider notified?: Yes, Notify in am 03/14/25 09:21 Consult Physician Urgent Consulting Provider: Jarrett Hodges Consult Reason/Comments: soft tissue swelling, s/p ORIF, r/o infection Do you want consulting provider notified?: Yes Primary care physician: Stated None Hospital Course: Discharge Diagnosis: Chest pain, acute coronary event ruled out Cocaine abuse Left lower extremity pain and swelling status post left lateral malleolus fracture repair Noncompliance with postsurgical instructions. Patient was educated on importance of compliance with postsurgical instructions. Orthopedic surgery recommending patient to stay nonweightbearing of left ankle to allow time for a dequate healing, ice and elevation of left lower extremity and use of walking boot with either walker or crutches at this time and for patient to follow-up outpatient in their office in 1 to 2 weeks. Anxiety with depression. Continue daily medication regimen with Zyprexa 10 mg nightly and Depakote 500 mg nightly. Close head injury Hospital Course: Patient is a 60-year-old male with a past medical history of previous CVA/TIA, hyperlipidemia, nicotine dependence, cocaine use/abuse, anxiety with depression, closed head injury, and recent ankle fracture status post surgical repair on 02/06/2025. He presented to the hospital on 03/13/2025 with a chief complaint of left lower extremity pain and swelling along with chest pain and shortness of breath after recent use of cocaine. Patient did admit that when he was discharged after surgery he was discharged with a walking boot and walker but states he has not been using it and has been ambulating on left foot without walking boot and not using walker as previously instructed. Upon arrival to our facility, patient underwent evaluation in the emergency department. Vital signs upon arrival revealed blood pressure 111/73, heart rate 88, respiratory rate 18, temp 98.1 F, and SpO2 of 97% on room air. EKG completed showing sinus mechanism at 72 bpm with LVH and T wave inversion of inferior lead III. Chest x-ray negative for acute cardiopulmonary process. X-ray left ankle and tib-fib completed showing post fixation changes to distal fibula with hardware intact and soft tissue swelling around the fracture site. Venous Doppler left lower extremity negative for DVT. CTA chest completed negative for PE. Labs were completed and reviewed. CBC showing low hematocrit of 36.5 otherwise no significant abnormalities. Coagulation profile showing low PTT of 21.7 and elevated D-dimer of 1.29. BMP showing metabolic acidosis with chloride of 110, bicarb of 20, and anion gap of 7. Blood glucose was 128. Magnesium 2.0. Lactic acid 9.2. Liver profile showing hyperbilirubinemia with total bili 1.4. Troponin was 0.031. Urine drug screen positive for opiates and cocaine. Patient was admitted under services with consultation to cardiology and orthopedic surgery. Troponins were trended resulting at 0.031 and less than 0.012. Orthopedic surgery evaluated and discussed case with orthopedic surgery PA stating they have reviewed imaging and no concerns of infectious process, recommending patient to stay nonweightbearing of left ankle to allow time for adequate healing, ice and elevation of left lower extremity and use of walking boot with either walker or crutches at this time and for patient to follow-up outpatient in their office in 1 to 2 weeks. Cardiology evaluated recommending completion of echocardiogram and if normal, clearing patient from their perspective recommending outpatient stress testing in their office in 1 week. Discharge was delayed secondary to difficulties with echocardiogram software, test facility engineer personally reviewed echocardiogram stating preliminary report as follows with EF of 55 to 60% and no obvious regional wall motion or abnormality, no significant valvular dysfunction, and no pericardial effusion. Patient medically optimized for discharge at this time, he was strongly encouraged to avoid any and all further cocaine use and to follow-up outpatient as discussed with PCP and test facility engineer. Physical exam: Vital signs reviewed and stable. General: Nontoxic, no distress and appears stated age. Derm: Skin warm and dry, normal coloration for ethnicity. Head: Atraumatic, normocephalic and symmetric. Eyes: EOM's intact, no lid lag, and anicteric sclera Mouth: no lip lesions, mucus membranes moist Cardiovascular: regular rate and rhythm with normal S1S2, no murmur, positive posterior tibial pulses bilaterally, and cap refill < 2 seconds. Lungs: Respirations even, regular, and unlabored on room air. Lungs CTA bilaterally, no rhonchi, no rales, no wheezing, and no accessory muscle usage. Abdominal: soft, nontender to palpation, no guarding, no appreciable organomegaly Ext: No gross muscle atrophy, no edema, no contractures. Movement and sensation intact. Patient with noted swelling left lateral ankle. Surgical incision site appears to be well-healed, no increased warmth, surrounding erythema, or drainage noted. Neuro: Speech clear, face symmetrical and CN II-XII grossly intact with no noted focal neuro deficits Psych: Alert and oriented to person, place, time, and situation. Appropriate and pleasant affect. A total of 34 minutes of time were spent preparing this complex discharge summary. Pt was discharged on 03/15/25 at 2:22 PM. Patient was seen independently by Nurse Practitioner. This document was prepared using [employer] dictation software. Please allow for errors in component overhaul operator while rare they do occur. Maximilian Mccall NP rendered care for this patient independently, reviewed the findings and plan as documented in the note above. I did not physically speak with or examine the patient on this date. Patient Condition at Discharge: Stable Plan - Discharge Summary Discharge Rx Participant: No New Discharge Prescriptions: New metFORMIN HCL [Glucophage] 500 mg PO BID 30 Days #60 tab Continue Clopidogrel [Plavix] 75 mg PO DAILY #21 tab Cholecalciferol (Vitamin D3) [Vitamin D3 (1250 Mcg = 50,000 Iu)] 1,250 mcg PO Q28D Atorvastatin [Lipitor] 80 mg PO DAILY Fexofenadine HCl [Darby Allergy] 180 mg PO DAILY Divalproex [Depakote] 500 mg PO HS #30 tab Acetaminophen Tab [Tylenol] 650 mg PO Q6HR PRN tab PRN Reason: Fever And/ Or Pain HYDROcodone/APAP 7.5-325MG [Preston 7.5-325] 1 tab PO BID PRN PRN Reason: Pain Aspirin EC [Ecotrin] 325 mg PO DAILY Albuterol Sulfate [Ventolin HFA] 2 puff INHALATION RT-QID PRN PRN Reason: Shortness Of Breath Melatonin 10 mg PO HS #60 tab OLANZapine [ZyPREXA] 10 mg PO HS #30 tab Discharge Medication List Clopidogrel [Plavix] 75 mg PO DAILY #21 tab 04/15/23 [Rx] Albuterol Sulfate [Ventolin HFA] 2 puff INHALATION RT-QID PRN 02/04/25 [History] Aspirin EC [Ecotrin] 325 mg PO DAILY 02/04/25 [History] Atorvastatin [Lipitor] 80 mg PO DAILY 02/04/25 [History] Cholecalciferol (Vitamin D3) [Vitamin D3 (1250 Mcg = 50,000 Iu)] 1,250 mcg PO Q28D 02/04/25 [History] Fexofenadine HCl [Darby Allergy] 180 mg PO DAILY 02/04/25 [History] Acetaminophen Tab [Tylenol] 650 mg PO Q6HR PRN tab 02/23/25 [Rx] Divalproex [Depakote] 500 mg PO HS #30 tab 02/23/25 [Rx] Melatonin 10 mg PO HS #60 tab 02/23/25 [Rx] OLANZapine [ZyPREXA] 10 mg PO HS #30 tab 02/23/25 [Rx] HYDROcodone/APAP 7.5-325MG [Preston 7.5-325] 1 tab PO BID PRN 03/13/25 [History] metFORMIN HCL [Glucophage] 500 mg PO BID 30 Days #60 tab 03/14/25 [Rx] Follow up Appointment(s)/Referral(s): Abby Smith MD [STAFF PHYSICIAN] - 1 Week Gerald Weber MD [STAFF PHYSICIAN] - 1-2 days Osmani Hart PAC [PHYSICIAN CLIENT ACCOUNT ASSISTANT] - 1 Week Patient Instructions/Handouts: Chest Pain (DC), Cocaine Abuse (DC), Type 2 Diabetes in Adults: New Diagnosis (GEN), Leg Pain (ED) Activity/Diet/Wound Care/Special Instructions: Orthopedic discharge instructions: 1. Nonweightbearing left lower extremity 2. Utilize the cam walker boot at all times 3. Ice and elevate 4. Plan for follow-up in the outpatient setting in 1 week Diet: Heart healthy and carb consistent diet. Special Instructions: Take all of your medications as directed and remember to keep all of your doctor's appointments and follow-up as needed. Monitor blood glucose levels daily and document findings in a daily log to bring with you to your next appointment with your PCP. STRONGLY recommending avoiding any and all drug use, especially cocaine with your history of CVA and recurrent episodes of chest pain. Thank you for allowing us to participate in your care, it was truly a pleasure having you for our patient!!! Discharge/Stand Alone Forms: Community Resources, Outpatient Counseling, Inp Substance Abuse Facilities Discharge Disposition: HOME SELF-CARE
--- NOTE | 2025-03-15 21:12 | P.PN ---
Subjective Progress Note Date: 03/15/25 HISTORY OF PRESENT ILLNESS: This is a 60-year-old male with a past medical history significant for hype rlipidemia, CVA, nicotine dependence, and cocaine use. 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 We have been asked to see the patient in consultation for chest pain. Patient examined at the bedside. Patient is status post ORIF of left ankle lateral malleolus fracture on 02/06/2025. Patient apparently has been putting weight on his leg, despite orthopedic orders for nonweightbearing. Patient presented to the emergency room with pain in his leg. While in the emergency room, the patient began to have chest discomfort. He states the pain was in the middle of his chest and lasted for a few minutes and then went away. He denies having any chest pain or pressure this morning. He does report shortness of breath this morning DIAGNOSTICS: - EKG reveals sinus mechanism with nonspecific ST-T wave changes. LVH. - Chest xray negative for acute process. - Venous Doppler: Negative for DVT of left lower extremity -Chest CTA: Negative for pulmonary embolism. No significant coronary artery c alcifications. - Laboratory data: WBC 6.53. Hemoglobin 12.0. Platelet count 360. Sodium 136. Potassium 3.9. BUN 8. Creatinine 0.89. Troponin negative x 2. Toxicology screen positive for opiates and cocaine - Current home cardiac medications include Plavix 75 mg daily, Lipitor 80 mg daily, aspirin 325 mg daily. - Most recent echocardiogram obtained in March 2023 ejection fraction 60 to 65%, negative bubble study, mild concentric LVH. - Cardiac catheterization history: Patient denies Progress note 03/15/2025 Seen and examined at bedside this a.m. Denies any chest pain chest pressure shortness of breath Echocardiogram was nonrevealing BP 110/73, heart rate 83 PHYSICAL EXAM: VITAL SIGNS: Reviewed. GENERAL: Well-developed in no acute distress. HEENT: Head is normocephalic. Pupils are equal, round. Sclerae anicteric. Mucous membranes of the mouth are moist. Neck supple. No JVD or thyromegaly LUNGS: Respirations even and unlabored. Lungs essentially clear to auscultation bilaterally. HEART: Regular rate and rhythm. S1 and S2 heard. ABDOMEN: Soft. Nondistended. Nontender. EXTREMITIES: Normal range of motion. No clubbing or cyanosis. Peripheral pulses intact. No lower extremity edema NEUROLOGIC: Awake and alert. Oriented x 3. ASSESSMENT: Left ankle pain Status post ORIF of left ankle lateral malleolus fracture on 02/06/2025 Chest pain, troponin negative x 2 History of hyperlipidemia History of CVA Nicotine dependence Cocaine use PLAN: Patient is cleared to be discharged from cardiovascular standpoint Recommend outpatient follow-up with cardiology for possible stress testing Smoking cessation No changes to his current medications. He is on aspirin Plavix Lipitor Objective - Vital Signs Vital signs: Vital Signs Temp 98.1 F 03/15/25 07:00 Pulse 76 03/15/25 07:00 Resp 16 03/15/25 07:00 BP 98/59 03/15/25 07:00 Pulse Ox 97 03/15/25 07:00 FiO2 Intake & Output 03/15/25 03/15/25 03/16/25 06:59 18:59 06:59 Intake Total 540 Output Total 700 Balance -160 Intake: Oral 540 Output: Urine 700 Other: Voiding Method Toilet Toilet Urinal Urinal # Voids 3 - Labs CBC & Chem 7: 03/14/25 05:46 03/14/25 05:46
== END 2025-03-15 16:48 | disposition home or self-care (01) ==
LOC: EC 14:26 → 6NMEDSUR 19:20
PROVIDERS: ADMIT Student in an Organized Health Care Education/Training Program; ATTEND Student in an Organized Health Care Education/Training Program
DX: R07.89 Other chest pain (principal); R06.00 Dyspnea, unspecified; L03.116 Cellulitis of left lower limb; R79.89 Other specified abnormal findings of blood chemistry; R11.2 Nausea with vomiting, unspecified; F39 Unspecified mood [affective] disorder; R60.0 Localized edema; S82.62XG Displaced fracture of lateral malleolus of left fibula, subsequent encounter for closed fracture with delayed healing; S09.90XD Unspecified injury of head, subsequent encounter; W19.XXXD Unspecified fall, subsequent encounter; E78.5 Hyperlipidemia, unspecified; F41.8 Other specified anxiety disorders; F14.10 Cocaine abuse, uncomplicated; F17.200 Nicotine dependence, unspecified, uncomplicated; Z86.73 Personal history of transient ischemic attack (TIA), and cerebral infarction without residual deficits; Z91.81 History of falling; Z91.199 Patient's noncompliance with other medical treatment and regimen due to unspecified reason; Z79.02 Long term (current) use of antithrombotics/antiplatelets; Z79.82 Long term (current) use of aspirin; Z79.899 Other long term (current) drug therapy
CPT/HCPCS: 96376 ×3; 96365; 96372 ×3; 96375; 99285; 36415; 94640; 93005; 93306; 85379; 80061; 80053; 80048; 84443; 83735; 84550; 84484; 85025; 85027; 85610; 85730; 86140; 80306; 83036; 84145; 73590; 73610; 71046; 93971; 71275; G0378 ×3; J2270 ×3; J1650 ×2; J0696; J1885; Q9967